=== PATIENT | male | born 1930 | race Caucasian/White ===

== ENCOUNTER 2016-05-29 08:37 | Inpatient (IN) | payer OTHER, MEDICAID ==
--- NOTE | 2016-05-29 09:02 | EDPHY ---
H & P Time Seen by Provider: 05/29/16 08:37 HPI/ROS: Chief complaint: Fall History of present illness: This is an 86-year-old male brought to the emergency department by EMS from [facility] where he resides for an apparent fall. According to EMS patient was found on the floor in his room yesterday. He appeared to have fallen. Nursing staff evaluated him and was able to get him back into his bed. This morning he apparently started to complain of some hip pain. An x-ray was taken which showed a femoral neck fracture. EMS was contacted and he was transported here. On my evaluation patient states his hips hurt, he denies other complaints. Review of systems: Unable to obtain secondary to level of consciousness (Vega Duran) Social History: Lives at [facility] (Vega Duran) Physical Exam: General Appearance: Alert, nontoxic Eyes: PERRLA Respiratory: Lungs clear to auscultation bilaterally Cardiac: Regular rate and rhythm. Gastrointestinal: Soft, nondistended, nontender. Neurological: Alert. Good strength in the upper and lower extremities bilaterally. Skin: No lesions consistent with trauma Musculoskeletal: Head is normocephalic, atraumatic. Spine without apparent tenderness. Chest wall intact palpation. Discomfort moving his hips. He is able to move the rest the extremities well. (Vega Duran) Constitutional: Initial Vital Signs Temperature (C) 36.3 C 05/29/16 08:58 Heart Rate 125 H 05/29/16 08:58 Respiratory Rate 16 05/29/16 08:58 Blood Pressure 99/59 L 05/29/16 08:58 O2 Sat (%) 91 L 05/29/16 08:58 O2 Delivery Mode Nasal Cannula O2 (L/minute) 2 Allergies/Adverse Reactions: No Known Allergies Allergy (Unverified 05/29/16 08:46) Home Medications: Medication Instructions Recorded Acetaminophen [Tylenol 325mg (*)] 650 mg PO Q6HRS PRN 05/29/16 Bisacodyl [Dulcolax] 10 mg RC DAILY PRN 05/29/16 Furosemide [Lasix 40 MG (*)] 40 mg PO DAILY 05/29/16 Levothyroxine [Synthroid 50 mcg 50 mcg PO DAILY06 05/29/16 (*)] Lisinopril [Zestril 10 mg (*)] 10 mg PO DAILY 05/29/16 Magnesium Hydroxide [Milk of 30 ml PO DAILY PRN 05/29/16 Magnesia] Metoprolol Tartrate [Lopressor 50 50 mg PO BID 05/29/16 mg (*)] Mirtazapine [Remeron] 15 mg PO DAILY 05/29/16 Vici-3 Fatty Acids [Fish Oil 1000 1,000 mg PO BID 05/29/16 mg (*)] Simvastatin [Zocor] 20 mg PO DAILY 05/29/16 Warfarin Sodium [Coumadin 2.5MG 2.5 mg PO TUTHSA@2100 05/29/16 (*)] Warfarin Sodium [Coumadin 5MG (*)] 5 mg PO SUMOWEFR@21 05/29/16 Medical Decision Making - Diagnostics Imaging: CT scan of the head and cervical spine negative for acute injury Chest x-ray with cardiomegaly and pulmonary vascular redistribution and sequelae of prior CABG Bilateral hip x-ray shows a left femoral neck fracture (Vega Duran) ED Course/Re-evaluation: Patient will be admitted to the hospitalist service under the care of Dr. Helder Webb On-call orthopedics, Dr. Miguel Andrews will consult on this patient On-call Cardiology, Dr. Ayana Leroy will also consult on this patient Patient is seen in conjunction with my secondary supervising physician Dr. Dolores Saldivar. Patient presents to the emergency department with EMS after sustaining a fall at his snf. It is not clear as to the events surrounding this fall, whether it was mechanical or medical. X-ray confirms a femoral head fracture. EKG shows patient in atrial fibrillation. Blood studies concerning for an elevated troponin. Patient is intermittently tachycardic and hypotensive. Aspirin was withheld at the request of my attending physician. Patient is anticoagulated with Coumadin. Patient is given fluid boluses with improvement in blood pressure. At the request of Cardiology a diltiazem drip is started without bolus. Patient is admitted to the hospital. (Vega Duran) Differential Diagnosis: Included but not limited to mechanical fall resulting in trauma multiple etiologies as well as syncope be secondary to volume depletion, cardiac disturbances, infectious pathology (Vega Duran) Other Provider: I evaluated and participated in the management of the patient. I also evaluated the patient independently. My co-signature indicates that I have reviewed this chart and I agree with the findings and plan of care as documented. My personal H&P findings include: 86-year-old male presents to the emergency department with a left femoral neck fracture. Patient has severe dementia and according to the snf records has a history of atrial fibrillation. He is on warfarin. On arrival to the emergency department his blood pressure was in the 90 systolic and heart rate ranged from 110 to 120. Patient himself can not provide history no review of systems secondary to his significant dementia. He denies any pain. He is alert and conversant. He has very dry mucous membranes. Lungs are clear. Abdomen is soft, heart rate is irregular and tachycardic. He has pain with range of motion and palpation of the left hip. No peripheral edema. Blood pressure improved with initially with a small bolus of fluid. However, patient was noted to have blood pressures ranging anywhere from mid 80s to mid 90 systolic. Heart rate remained in the 110's region throughout his emergency department course. Laboratory evaluation is concerning for an elevated troponin at 0.041 as well as a BNP of 9900. Patient's course was discussed with Dr. Ayana Leroy. Decision was made to place the patient on a low-dose Cardizem drip in an effort to obtain rate control and to improve the patient's blood pressure. Patient's course was discussed with Dr. Helder Webb, admitting hospitalist. Course was also discussed with Dr. Carlin oakes on 0, orthopedic surgery. Patient was admitted to the hospital for further evaluation and eventual operative repair. (Dolores Saldivar) - Data Points Laboratory Results: Laboratory Results 05/29/16 09:21 05/29/16 09:21 05/29/16 05/29/16 09:21 09:17 WBC 12.37 H 10^3/uL (3.80-9.50) RBC 5.02 10^6/uL (4.40-6.38) Hgb 13.7 g/dL (13.7-17.5) POC Hgb 13.9 L gm/dL (14.5-17.3) Hct 39.6 L % (40.0-51.0) POC Hct 41 L % (42.8-50.6) MCV 78.9 L fL (81.5-99.8) MCH 27.3 L pg (27.9-34.1) MCHC 34.6 g/dL (32.4-36.7) RDW 14.7 % (11.5-15.2) Plt Count 149 L 10^3/uL (150-400) MPV 10.1 fL (8.7-11.7) Neut % (Auto) 74.2 % (39.3-74.2) Lymph % (Auto) 20.5 % (15.0-45.0) Potter % (Auto) 3.1 L % (4.5-13.0) Eos % (Auto) 1.5 % (0.6-7.6) Baso % (Auto) 0.2 L % (0.3-1.7) Nucleat RBC Rel Count 0.0 % (0.0-0.2) Absolute Neuts (auto) 9.18 H 10^3/uL (1.70-6.50) Absolute Lymphs (auto) 2.54 10^3/uL (1.00-3.00) Absolute Monos (auto) 0.38 10^3/uL (0.30-0.80) Absolute Eos (auto) 0.18 10^3/uL (0.03-0.40) Absolute Basos (auto) 0.03 10^3/uL (0.02-0.10) Absolute Nucleated RBC 0.00 10^3/uL (0-0.01) Immature Gran % 0.5 % (0.0-1.1) Immature Gran # 0.06 10^3/uL (0.00-0.10) PT 32.5 H SEC (12.0-15.0) INR 3.11 H (0.83-1.16) APTT 54.8 H SEC (23.0-38.0) POC Sodium 140 mEq/L (134-144) Sodium 140 mEq/L (134-144) POC Potassium 4.2 mEq/L (3.3-5.0) Potassium 4.5 mEq/L (3.5-5.2) POC Chloride 101 mEq/L (96-108) Chloride 102 mEq/L (97-110) Carbon Dioxide 24 mEq/l (22-31) Anion Gap 14 mEq/L (8-16) POC BUN 30 H mg/dL (7-23) BUN 29 H mg/dL (7-23) Creatinine 1.5 H mg/dL (0.7-1.3) POC Creatinine 1.6 H mg/dL (0.8-1.5) Estimated GFR 44 Glucose 134 H mg/dL (70-100) POC Glucose 135 H mg/dL (70-100) Calcium 9.0 mg/dL (8.5-10.4) Creatine Kinase 139 IU/L (0-224) Troponin I 0.041 H ng/mL (0-0.034) NT-Pro-B Natriuret Pep 9900 H pg/mL (0-450) Medications Given: Discontinued Medications Diltiazem HCl 125 mg/ Dextrose 150 mls @ 0 mls/hr IV EDNOW ONE; As Directed PRN Reason: Protocol Stop: 05/29/16 10:27 Last Admin: 05/29/16 13:30 Dose: 150 mls Phytonadione (Vitamin K) 5 mg PO ONCE ONE Stop: 05/29/16 14:39 Last Admin: 05/29/16 15:38 Dose: 5 mg Point of Care Test Results: 05/29/16 09:17 POC Sodium 140 POC Potassium 4.2 POC Chloride 101 POC BUN 30 H POC Creatinine 1.6 H POC Glucose 135 H Departure - Departure Disposition: [facility] Inpatient Acute Clinical Impression: Femoral neck fracture Qualifiers: Qualifier Code: (S72.002A) Fracture of unspecified part of neck of left femur, initial encounter for closed fracture A-fib Qualifiers: Qualifier Code: (I48.91) Unspecified atrial fibrillation Hypotension Qualifiers: Qualifier Code: (I95.9) Hypotension, unspecified Condition: Serious
--- NOTE | 2016-05-29 09:24 | CPEKG ---
Heart Rate: 87 RR Interval: 690 QRSD Interval: 124 QT Interval: 376 QTC Interval: 453 QRS [place]: -20 T Wave [place]: 173 EKG Severity - ABNORMAL ECG - EKG Impression: ATRIAL FIBRILLATION EKG Impression: LEFT BUNDLE BRANCH BLOCK Electronically Signed By: Dolores Saldivar 29-May-2016 15:48:08
[2016-05-29 09:26] LABS: % IMMATURE GRANULYOCYTES 0.5 % (0.0-1.1); ABSOLUTE IMMATURE GRANULOCYTES 0.06 10^3/uL (0.00-0.10); ADD DIFF? NO; ADD MORPH? NO; ADD SCAN? NO; ATYPICAL LYMPHOCYTE FLAG 10 (0-99); FRAGMENT RBC FLAG 0 (0-99); HEMATOCRIT 39.6 % (40.0-51.0); HEMOGLOBIN 13.7 g/dL (13.7-17.5); LEFT SHIFT FLG 0 (0-99); LIPEMIA HEMOLYSIS FLAG 90 (0-99); MEAN CELL HEMOGLOBIN 27.3 pg (27.9-34.1); MEAN CELL HEMOGLOBIN CONCENTR. 34.6 g/dL (32.4-36.7); MEAN CELL VOLUME 78.9 fL (81.5-99.8); MEAN PLATELET VOLUME 10.1 fL (8.7-11.7); PLATELET CLUMPS FLAG 0 (0-99); PLATELET COUNT 149 10^3/uL (150-400); RED BLOOD CELL COUNT 5.02 10^6/uL (4.40-6.38); RED CELL DISTRIBUTION WIDTH 14.7 % (11.5-15.2)
[2016-05-29 09:39] LABS: ANION GAP 14 mEq/L (8-16); CARBON DIOXIDE 24 mEq/l (22-31); CHLORIDE 102 mEq/L (97-110); CREATININE 1.5 mg/dL (0.7-1.3); GLOMERULAR FILTRATION RATE 44; GLUCOSE 134 mg/dL (70-100); POTASSIUM 4.5 mEq/L (3.5-5.2); SODIUM 140 mEq/L (134-144)
[2016-05-29 09:51] LABS: TROPONIN I 0.041 ng/mL (0-0.034)
--- NOTE | 2016-05-29 10:16 | CT ---
Unenhanced CT Scan of the Brain and Cervical Spine Clinical History: 86-year-old male status post trauma with a head injury. The patient also has some c ervicalgia. Technique: Standard unenhanced axial CT images were acquired from the skull base to the skull vertex, reformatted at 5.00 and 1.50 mm increments, and reviewed in bone, brain, and subdural windows. The D FOV is 25 cm. Subsequently, a multidetector unenhanced helical CT scan was obtained from the level of the clivus to the T2-T3 disk interspace, with images reformatted at 1.50 mm increments, and reviewed at a variety of window and level settings. The DFOV is 17.6 cm. Parasagittal and paracoronal constru cted images of the brain and cervical spine were also provided. A dose reduction protocol was used. Comparison Study: None. Findings: UNENHANCED CT SCAN OF THE HEAD: The ventricles and basilar cisterns are prominent with cortical sulc al widening, consistent with age-related cerebral atrophy. There is periventricular diminished attenu ation, consistent with chronic vascular ischemic gliosis. There are areas of focal lacunar infarction at the level of the left basal ganglia and the left batista radiata. There is no acute or subacute ab normal intra or extra-axial blood. The craniocervical junction, sella turcica, pineal gland, and orbi ts are unremarkable. There is some atherosclerotic calcification associated with the vertebral and ca vernous carotid arteries. The paranasal sinuses and mastoids are patent. There is no evidence of a sk ull fracture. Impression: Moderately advanced senescent features, with no acute intracranial abnormality. UNENHANCED CT SCAN OF THE CERVICAL SPINE: The bones are mildly demineralized. The vertebral body hei ghts and posterior alignments are maintained. There is a mild cervical levoscoliosis. There is no acu te fracture or facet malalignment. The craniocervical junction appears normal. There is some osseous hypertrophy along the anterior arch of C1 and there some mild narrowing of the predental space. The a tlantoaxial alignment is maintained, and the base and the tip of the dens are normal. There is a Schm orl's node seen along the inferior cortical endplate of C3. The prevertebral soft tissues are age rianna ropriate. There is no prevertebral hematoma or epidural hematoma. Median sternotomy wire is seen. The re is no focal alveolar consolidation or apical pneumothorax. A small calcified granuloma is seen in the anterior right upper lobe. The C1-C2 level demonstrates patency of the central canal. At the C2-C3 level, there is severe right and mild left facet hypertrophy. The central canal and neur al foramina remain patent. At the C3-C4 level, there is moderate degenerative disk space narrowing. Bilateral uncovertebral oste ophytes and moderate to severe bilateral facet hypertrophy result in [id number]-[id number] bilateral lizandro ral foraminal stenosis. The central canal remains patent. At the C4-C5 level, there is severe right and mild left facet hypertrophy. Uncovertebral osteophytes results in a mild degree of left neural foraminal stenosis. At the C5-C6 level, there is moderate degenerative disk space narrowing with moderate bilateral facet hypertrophy and uncovertebral osteophytes, resulting in severe bilateral neural foraminal stenosis. The central canal remains patent. The C6-C7 and C7-T1 levels demonstrate no central canal or neural foraminal stenosis. Impression: Multilevel degenerative changes as-detailed, with no acute cervical osseous abnormality. If there is further clinical concern regarding the patient's brain or cervical spine, MR imaging coul d be considered. Results were called to Vega Duran PA-C.
--- NOTE | 2016-05-29 10:23 | DX ---
Portable Bilateral Hips, 4 Views Total, 8:58 a.m. Indication: Status post fall. Technique: AP supine views of the pelvis, frog lateral view of the right hip, and crosstable lateral view of the left hip. Comparison Study: None available. Findings: There is an acute left femoral neck fracture with varus angulation. The left femoral head s till remains seated within the acetabulum. The patient has had a prior right hip arthroplasty, which is anatomically aligned. The femoral intramedullary sukhwinder is well-centered. A vascular stent is seen ov er the medial right mid-thigh, and at the level of the distal abdominal aorta to the aortoiliac bifur cation. The bones are demineralized. The ischial pubic rami are intact. There is some degenerative ch anges of the lower lumbar spine. Impression: 1. Acute left femoral neck fracture with varus angulation. 2. Status post prior remote right hip arthroplasty with anatomic alignment.
[2016-05-29] MEDS ORDERED: DILTIAZEM 125 MG in D5W 125 ML IV ONE (10:26)
--- NOTE | 2016-05-29 10:30 | DX ---
Chest, AP Supine and Lateral Views, 3 Views Total - May 29, 2016, at 9:31 a.m. Clinical History: 86-year-old male status post fall with left femoral neck fracture. Comparison Study: None available. Findings: Telemetry monitoring lead lines are present. There patient has had prior CABG, and the hear t is mildly enlarged. There is mild tortuosity of the aorta. The pulmonary vasculature is redistribut ed. This could be secondary to recumbent positioning, or true pulmonary venous congestion. There is n o peripheral interstitial edema, focal alveolar consolidation, or pleural effusion or pneumothorax. T here are degenerative features of the spine. Impression: Cardiomegaly with pulmonary vascular redistribution, and sequela of prior CABG.
[2016-05-29 10:36] LABS: INR 3.11 (0.83-1.16); PROTIME(PATIENT) 32.5 SEC (12.0-15.0)
[2016-05-29 10:37] LABS: APTT 54.8 SEC (23.0-38.0)
[2016-05-29] MEDS ORDERED: ONDANSETRON 4 MG/2 ML VIAL IVP PRN (11:19)
[2016-05-29] MEDS ORDERED: ONDANSETRON DISINTEGRATING 4 MG TAB PO PRN (11:19)
[2016-05-29] MEDS ORDERED: MAGNESIUM HYDROXIDE 30 ML UDCUP PO PRN (11:52)
[2016-05-29] MEDS ORDERED: BISACODYL 10 MG SUPP PR PRN (11:52)
[2016-05-29] MEDS ORDERED: METOPROLOL TARTRATE 50 MG TAB PO SCH (12:00)
--- NOTE | 2016-05-29 12:40 | GHP ---
[f rep st] HISTORY AND PHYSICAL DATE OF ADMISSION: 05/29/2016 HISTORY OF PRESENT ILLNESS: The patient is an 86-year-old gentleman with history of coronary artery disease and dementia who had a mechanical fall yesterday at [facility], where he resides. He tells m e he was found on the floor of his room. They got him up and brought him back to bed and then this m orning, he was complaining of hip pain. He was unable to stand. They got an x-ray there which demon strated a femoral neck fracture. He was brought here. When I speak with the patient, he is alert an d oriented to being in the hospital and his name, but he is not sure at which hospital. He denies pa in but he does wince when his left leg is moved. He denies chest pain, shortness of breath. No feve r, chills, nausea, vomiting, diarrhea, although I am not sure how aware of these things he actually i s. REVIEW OF SYSTEMS: Complete 10-point review of systems conducted and negative except as noted in the HPI. PAST MEDICAL HISTORY: 1. Dementia. 2. Right hip fracture. 3. Coronary artery disease, status post CABG 8-10 years ago with anatomy unknown. 4. History of AAA repair with a bifurcated aortic graft. 5. Atrial fibrillation. 6. Hyperlipidemia. 7. Hypothyroidism. ALLERGIES: No known drug allergies. MEDICATIONS: Warfarin, Lasix, levothyroxine, lisinopril, Remeron, simvastatin, fish oil, metoprolol 75 b.i.d., p.r.n. Ativan for agitation. SOCIAL HISTORY: At this point in time, it does not appear that he drinks alcohol or smokes cigarette s. He was at [facility]. He has dementia, He is a Do Not Resuscitate. FAMILY HISTORY: Parents are . PHYSICAL EXAM: VITALS: Temp 36.3, blood pressure 99/59, pulse 125, breathing 16 times a minute, 91% on room air. GENERAL: No acute distress, alert but not oriented. HEENT: Sclerae anicteric. Orop harynx clear. Mucous membranes are moist. NECK: Supple. No lymphadenopathy or JVD. LUNGS: Clear to auscultation anterolaterally. HEART: S1, S2. Irregularly irregular and tachycardic without sig nificant murmur. ABDOMEN: Soft, nontender, nondistended. EXTREMITIES: His left lower extremity is externally rotated and shortened. There is trace edema bilaterally. Calves are nontender. SKIN: Without rash. NEUROLOGIC: Nonfocal. LABS: Sodium 140, potassium 4.5, chloride 102, bicarb 24, BUN 29, creatinine 1.5, glucose 134. Trop onin 0.041, rapid repeat about an hour and 40 minutes later showed 0.026. His BNP is elevated at 990 0. There are no priors for comparison. His INR is 3.11. White count 12.37, hematocrit 39.6, platel ets are 149,000. Chest x-ray, interpreted by me, shows sequelae of prior CABG without heart failure. No focal infiltr ate and no pneumothorax. Hip x-ray shows left femoral neck fracture and right hip arthroplasty. EKG interpreted by me, shows atrial fibrillation at 87 with left bundle branch block pattern. Head CT shows moderately advanced senescent features. No acute intracranial abnormality. Unenhanced CT scan of the cervical spine shows multilevel degenerative disease changes with no acute osseous abnormality. I have discussed the case with Dr. Ayana Leroy and Dr. Casa Saldivar. ASSESSMENT/PLAN: This is an 86-year-old gentleman with coronary artery disease, peripheral vascular disease, who presents with hip fracture, positive troponin, an elevated BNP, as well as rapid atrial fibrillation. 1. Hip fracture. This warrants operative management despite his multiple comorbidities and signific ant dementia. The patient does probably require an additional 24 hours of workup prior to visiting t operating room. a. He does not appear to have acute coronary syndrome. I suspect the elevated troponin is secondary to demand from rapid atrial fibrillation. b. Will attempt to find a prior EKG to evaluate his left bundle branch block pattern. c. Stat echo has been ordered. 2. He will be seen in consultation by Dr. Ayana Leroy. [place] timing for the operating room would be not before 05/30/2016. 3. Preoperative cardiac evaluation: The patient has known coronary disease with active cardiac cond ition of uncontrolled atrial fibrillation which I suspect is secondary to pain and/or dehydration. H e has been given gentle IV fluids and diltiazem drip has been started. I will continue his metoprolo l; it is possible that he missed his dose this morning. 4. Pulmonary embolism has been considered as a cause of this; however, given his INR of 3, I think t his is less likely. 5. Elevated INR. This should be reversed prior to surgery. I will hold on doing this today as we a wait further cardiac workup. 6. Coronary artery disease. The patient has a modestly elevated troponin that trended to normal. H is EKG with left bundle branch block is potentially concerning for an ischemic equivalent; however, I think given his down trending troponin, I suspect that some of it is chronic for him. Attempts to f ind a prior EKG are ongoing. 7. Dementia. Caution with sedating medications. No Benadryl. No Phenergan. Would used judicious pain medicines. 8. Pain. I have written him for scheduled Tylenol and p.r.n. low-dose hydromorphone. 9. Elevated creatinine. His baseline is unknown. He appears clinically a bit dry, he was given doug e IV fluids. Will repeat the value tomorrow. 10. Elevated BNP. This value is markedly elevated; however, without known prior obvious heart failu re, it is difficult to know what to make of it better. Echocardiogram is pending. 11. Prophylaxis. His INR is therapeutic. 12. Code: Do Not Resuscitate. 13. Disposition: Inpatient status. /[id number]/MODL
[2016-05-29] MEDS ORDERED: ACETAMINOPHEN 325 MG TAB PO SCH (14:00)
--- NOTE | 2016-05-29 14:26 | GCON ---
[f rep st] CONSULTATION DATE OF CONSULTATION: 05/29/2016 CHIEF COMPLAINT: Status post hip fracture, preoperative evaluation. HISTORY OF PRESENT ILLNESS: We were asked by Dr. Webb to visit with Mr. Renee. The patient has significant dementia, and history from the patient is limited. I did interview his daughter as well, who does not have all the details of his medical history. This is an 86-year-old male with a history of remote CABG in [place], [place]. His daughter thinks this was in the 80s. He has atrial fibrillation on chronic Coumadin therapy, hypertension, unspecifi ed heart failure, and what she thinks might be an abdominal aortic aneurysm. He was moved from [facility] to [facility] a few months ago and has not fully established cardiology or primar care here in [place] yet. Yesterday, he was found on the floor of his room by the staff at [facility]. They were able to get h im back to bed. However, this morning, he was complaining of left hip pain and an x-ray was performe d. This confirmed a left femoral neck fracture, and he was brought to the ER for further evaluation. In the department, he was found to be in atrial fibrillation with rapid ventricular response and bord vilma blood pressures. His hemodynamics improved with IV fluid resuscitation. He was admitted to [facility]. Upon my evaluation, he denies chest pain or dyspnea. He thinks that he fell off his horse and that i s how he broke his hip. He is having left hip pain. REVIEW OF SYSTEMS: Unable to perform a complete review of systems due to the patient's dementia. CODE STATUS: Do Not Resuscitate. PAST MEDICAL HISTORY: 1. Coronary disease, status post remote CABG. 2. Peripheral vascular disease with possible AAA. 3. Atrial fibrillation. 4. Hypertension. 5. Heart failure, unspecified. 6. Dementia. 7. Status post right hip fracture and repair in the past. 8. Hypothyroidism. OUTPATIENT MEDICATIONS: Tylenol, warfarin, Dulcolax, fish oil, Lasix 40 mg daily, metoprolol 50 mg t wice daily, milk of magnesia, Remeron, Synthroid 50 mcg daily, lisinopril 10 mg daily and simvastatin . SOCIAL HISTORY: The patient resides at [facility]. He does not smoke cigarettes. FAMILY HISTORY: Not applicable to the current case. PHYSICAL EXAM: VITAL SIGNS: Blood pressure 98/75, heart rate 109, oxygen saturation 95% on 2 L. He has afebrile. GENERAL: Elderly frail male in no acute distress. HEENT: Sclerae are clear and viki e of jaundice. Mucous membranes are dry. CARDIOVASCULAR: JVP is less than 10. Irregular, irregula r rhythm without murmur or rub. No S3. LUNGS: Clear anteriorly and laterally. ABDOMEN: Soft, non tender, nondistended without bruits, masses or hepatosplenomegaly. EXTREMITIES: Warm and well-perfu sed with trace bilateral ankle edema. No cyanosis or clubbing. NEURO: He is oriented to self, but does not recall the exact details of his hospital admission. LABORATORY DATA: White count 12.37 with a left shift. Hematocrit 39.6 and platelets 149. INR 3.1, sodium 140, potassium 4.5, chloride 102, bicarb 24, BUN 29, creatinine 1.5, unknown baseline. Glucos e 134, troponin 0.041. Repeat troponin 0.026. BNP 9900. Chest x-ray reviewed by me: Cardiomegaly and pulmonary vascular redistribution. Sequela of prior CA BG. Head CT shows no acute process. Advanced senescent features. Multilevel degenerative changes in the cervical spine. Hip x-ray: Acute left femoral neck fracture. EKG reviewed by me: Atrial fibrillation with left bundle branch block. We do not have a previous EK G. Echocardiogram reviewed by me: Overall, normal LV systolic function with moderate mitral regurgitati on. Abnormal septal motion consistent with conduction abnormality. Mild to moderate tricuspid regur gitation. Moderate to severe RV dilation with borderline reduced RV systolic function. Aortic valve sclerosis without stenosis. Severe biatrial dilation. ASSESSMENT AND PLAN: An 86-year-old male with known history of coronary disease, status post remote CABG, atrial fibrillation, hypertension, dementia. Admitted status post fall at his nursing facility , complicated by left femoral neck fracture. 1. Coronary disease/history of CABG: No ischemic wall motion abnormalities on echo. No complaints of angina. His EKG shows left bundle, I do not know the chronicity of this. His initial troponin wa s minimally elevated. Second troponin is normal. No indication for coronary angiogram or pharmacolo gic stress testing. Continue medical management with his outpatient beta blockers and statin. He is on warfarin, and the decision about aspirin can be made after his surgery. 2. Atrial fibrillation: Initially rapid ventricular response. Blood pressures were initially on th e low side. This is improved with IV fluids. I would restart his outpatient metoprolol at a slightl y lower dose. If this is ineffective, consider diltiazem drip. Coumadin can be held for the periope rative period. 3. Preoperative for hip repair: His INR is elevated, so likely his hip surgery we will have to be d elayed. He is a risk patient for a moderate risk procedure. We have recommended proceeding without further cardiac testing given the fact that he is ambulatory at his nursing facility and an unrepaire d hip would warrant him nonambulatory. This was discussed with the patient's daughter, Tammy, at the bedside. Reinitiate beta-blockers for cardio protection in the perioperative period. 4. Possible abdominal aortic aneurysm: His daughter is unsure of his history, but thinks he might h ave an abdominal aortic aneurysm. I do not appreciate this on exam. Obtain retroperitoneal ultrasou nd. Thank you for allowing us to participate in Mr. Freed's care. We will follow with you. /[id number]/MODL
--- NOTE | 2016-05-29 14:34 | SOAPPROG ---
SOAP Progress Note Assessment/Plan: Assessment: Plan: Subjective: Pain well controlled, c/o weakness and still difficulty mobilizing OOB. Objective: Vital Signs Temp Pulse Resp BP Pulse Ox 36.8 C 102 H 16 104/51 L 90 L 05/29/16 13:42 05/29/16 13:42 05/29/16 13:42 05/29/16 13:42 05/29/16 13:42 PT 32.5 SEC (12.0-15.0) H 05/29/16 09:21 INR 3.11 (0.83-1.16) H 05/29/16 09:21 ICD10 Worksheet Patient Problems: Problems Problem Status Diagnosed A-fib Acute Femoral neck fracture Acute Hypotension Acute
[2016-05-29] MEDS ORDERED: PHYTONADIONE 2.5 MG/2.5 ML ORAL UDL PO ONE (14:38)
--- NOTE | 2016-05-29 15:05 | ECHO ---
[id number] + + [address] : : [place] [address] : : [phone] + Adult Echocardiographic Report + ---+ :Name: QUINTON DOBSON Lorraine Date: 05/29/2016 12:21 PM : : Hospital Admission Number: [id number] Location: ER: :: 1930 Gender: Male Height: 64 in : :Age: 86 yrs Race: WH Weight: 170 lb : :Reason For Study: Increased troponin/fractured hip : : BSA: 1.8 meters2 : + ---+ MMode/2D Measurements & Calculations LVIDd: 4.9 cm EDV(Teich): 115.5 ml MV Diam: 2.9 cm Ao root diam: 3.7 cm LA dimension: 4.8 cm LVOT diam: 2.0 cmLVLd ap4: 6.5 cm SV(MOD-sp4): LVOT area: EDV(MOD-sp4): 27.0 ml 3.1 cm2 42.0 ml LVLs ap4: 6.7 cm ESV(MOD-sp4): 15.0 ml EF(MOD-sp4): 64.3 % Normal Measurement Values: + + :LVIDd (3.5-5.7cm) IVSd (0.6-1.1cm) LVPWd (0.6-1.1cm) Aortic Root (2.0-3.7cm)Left Atrium (1.5-4.0cm): :LV Vol(d) (76-115ml) LV Vol(s) (29-48ml) Ejec Fraction (50-65%)PV Nilson (0.6- 1.2m/s) TV Nilson (0.4-1.0m/s) : :MV E Nilson (0.8-1.0m/s)MV A Nilson (0.3-1.0m/s)LVOT Nilson (0.7-1.2m/s) Asc Ao Nilson ( 0.9-1.8m/s) : + + Doppler Measurements & Calculations MV V2 max: Ao V2 max: LV V1 max: MR max nilson: 92.2 cm/sec 127.5 cm/sec 67.7 cm/sec 404.0 cm/sec MV max P.4 mmHg Ao max PG: LV V1 max PG: MR max PG: MV V2 mean: 6.6 mmHg 1.8 mmHg 65.3 mmHg 53.0 cm/sec Ao mean PG: LV V1 mean PG: MV mean P.0 mmHg 1.0 mmHg 1.0 mmHg Ao V2 mean: LV V1 mean: MV V2 VTI: 12.1 cm 96.9 cm/sec 48.5 cm/sec MV area (1 diam): Ao V2 VTI: 22.0 cm LV V1 VTI: 13.4 cm 6.6 cm2 INOCENTE(I,D): 1.9 cm2 MVA(VTI): 3.5 cm2 INOCENTE(V,D): 1.7 cm2 MV Flow area (1diam): 6.6 cm2 MR(RF 1 diam): SV(MV 1 diam): TR max nilson: RF(MV,Ao)(1 diam): 20.6 % 79.9 ml 274.0 cm/sec -2.0 SI(MV 1 diam): TR max PG: RF(MV,LVOT) 43.8 ml/m2 30.0 mmHg (1diam): 0.47 SV(LVOT): 42.1 ml RAP systole: 10.0 mmHg RVSP(TR): 40.0 mmHg Left Ventricle The left ventricle is normal in size. There is normal left ventricular wall thickness. Left ventricular systolic function is normal. Ejection Fraction = 55-60%. Septal motion is consistent with conduction abnormality. Right Ventricle The right ventricle is moderately dilated. The right ventricular systolic function is borderline reduced. Atria The left atrium is moderately dilated. The right atrium is moderately dilated. The interatrial septum is intact with no evidence for an atrial septal defect. Mitral Valve The mitral valve is normal in structure and function. There is no evidence of mitral valve prolapse. There is no mitral valve stenosis. There is moderate mitral regurgitation. Tricuspid Valve Normal tricuspid valve. There is moderate to severe tricuspid regurgitation. Right ventricular systolic pressure is 40mmHg. Aortic Valve Fixed AV NCC. Moderate-Severe Aortic Valve Calcification. There is no aortic stenosis. There is no aortic insufficiency. Pulmonic Valve The pulmonic valve is normal in structure and function. There is no pulmonic valvular regurgitation. Great Vessels The aortic root is normal size. Pericardium/Pleural There is no pericardial effusion. Conclusion A complete two-dimensional transthoracic echocardiogram was performed (2D, M-mode, Doppler and color flow Doppler). Left ventricular systolic function is normal. Ejection Fraction = 55-60%. Abnormal septal motion consistent with conduction abnormality The right ventricle is moderately dilated with borderline reduced RV systolic function The left atrium is moderately dilated. The right atrium is moderately dilated. There is moderate mitral regurgitation. There is moderate to severe tricuspid regurgitation. Right ventricular systolic pressure is 40mmHg. Moderate-Severe Aortic Valve Calcification Fixed AV NCC. No No prior echo Final Reading Physician: Dr Ayana Leroy electronically signed on 05/29/2016 03:04 PM Ordering Physician: Helder Webb Performed By: Yun Garcia, MOHAN
--- NOTE | 2016-05-29 15:16 | GCON ---
[f rep st] CONSULTATION ORTHOPEDIC CONSULTATION DATE OF CONSULTATION: 05/29/2016 CHIEF COMPLAINT: Left hip injury. HISTORY OF PRESENT ILLNESS: An 86-year-old male with multiple medical problems and severe dementia who suffered a mechanical fall yesterday at [facility], [facility], where he resides full-time. The patient apparently fell, was brought back into bed and then found this morning to have significant left hip pain as well as inability to bear weight. As a result, the patient was brought to [facility] ER, and found to have a left hip fracture. I was consulted as the on-call orthopedic surgeon. The patient denies any significant pain except when his left lower extremity is moved and when he was being transferred from [facility] to bed. He is accompanied by his daughter, who is the patient's power-of -ip attorney. The patient was a limited ambulator prior to this fall. The daughter describes him "dragging the left leg around." PAST MEDICAL HISTORY: Dementia, CAD, status post CABG. History of AAA, atrial fibrillation, hyperlipidemia, hypothyroidism. PAST SURGICAL HISTORY: Right hip fracture treated with bipolar hemiarthroplasty in [place], [place] in early 2012. Surgery for abdominal aortic aneurysm, though date is unknown. CABG in the mid . ALLERGIES: No known drug allergies. MEDICATIONS: Wafarin, Lasix, levothyroxine, lisinopril, metoprolol, simvastatin , Remeron, Ativan p.r.n. for agitation, and fish oil. SOCIAL HISTORY: The patient resides full-time at [facility], which is a memory care/dementia type facility. Most of this information is obtained from his daughter, who accompanies the patient at bedside. The patient quit smoking in the mid . No alcohol or drug use. FAMILY HISTORY: Father with history diabetes and coronary artery disease. Sister with coronary artery disease, COPD, emphysema, and was a heavy smoker. Son at age 32 of severe diabetes complications. A different son with coronary artery disease. A third son with chronic kidney disease and diabetes. REVIEW OF SYSTEMS: A 10-point review is otherwise negative for any other complaints, concerns or history. PHYSICAL EXAMINATION: VITAL SIGNS: The patient is afebrile at 36.3, blood pressure 104/51, heart rate 115, respiratory rate is 20 with 94% on 3 L nasal cannula. GENERAL: NAD, cooperative, and pleasant. A and O x2. HEENT: NC/AT , EOMI, PERRLA. Ears and nares currently without discharge. Oropharynx clear. NECK: NTTP, FROM, supple. Negative Lhermitte's and Spurling's. No LAD. MUSCULOSKELETAL: The left hip is compared to the right. There is no ecchymosis or erythema, calor or edema, NTTP. Positive SLR attempt, positive log roll. ROM deferred. No tenderness distally throughout the femur, knee, and lower leg, foot, and ankle. Both calves nontender, non swollen. Negative Homans. DNVI BLEs. Remainder of secondary survey is negative for any other obvious signs of significant musculoskeletal injury. SKIN: Please see dictation above. There is no ecchymosis or erythema, calor or edema. No other rashes or lesions noted. No tattoos noted. NEUROLOGICAL: Nonfocal. No deficits noted. C5 to T1 and L2 through S1 grossly intact, although the patient 's examination is somewhat difficult due to his mental status. DTRs are grade 1 + bilateral upper, 2+ bilateral lower extremities in symmetry. No clonus. PSYCH: Alert and oriented x2. Generally, depressed mood and affect. He does seem to be easily agitated. RADIOGRAPHS: Plain films are consistent with a left femoral neck fracture (GIV ) with significant displacement. Femoral head is reduced within the acetabulum. IMPRESSION: Closed, displaced left femoral neck fracture. PLAN: The patient's diagnosis and treatment options have been outlined for him and his daughter today. At this point, given the patient's atrial fibrillation and pending cardiac consult, it appears, per the Medicine notes and information , that the patient will not be cleared for surgery until the earliest tomorrow. He will remain NWB LLE, bedrest, position of comfort, p.o. analgesics if needed. I recommend knee-hi TEDs and SCDs on both lower extremities. Currently , his INR is elevated above 3, and this will need to be titrated down to a normal level, however, given the pending cardiac consultation, the patient is still receiving his anticoagulant. I will follow this patient with you. Please call once there is a definitive plan as to when he would be appropriate for surgery. All of his questions have been answered today. All of his daughter's questions have been answered today. She is very happy with the care he has received. Thanks very much. /[id number]/MODL MTDD
[2016-05-29 15:51] LABS: COLOR YELLOW; LEUKOCYTE ESTERASE,URINE NEGATIVE (NEGATIVE); NITRITE,URINE NEGATIVE (NEGATIVE)
[2016-05-29 15:58] LABS: MUCUS TRACE /lpf (NONE-1+); RBC,URINE 15-25 /hpf (0-3)
--- NOTE | 2016-05-29 16:22 | US ---
Sonography Limited to the Abdominal Aorta Clinical History: 86-year-old male with a possible history of an abdominal aortic aneurysm. Technique: A curvilinear 5 MHz transducer was used to sonographically evaluate the abdominal aorta to the level of the aortoiliac bifurcation. The study was technically limited by the presence of overly ing bowel gas. The lead electrical engineer also indicated that the patient was pushing the transducer away throug hout the exam, further limiting evaluation. Comparison Study: Radiographs of the pelvis from early this morning. Findings: The proximal abdominal aorta has an AP diameter of 2.5 cm. The midabdominal aorta measures 3.5 x 2.7 cm, and the distal abdominal aorta measures 2.9 x 3.0 cm. There is an abdominal aortic sten t which extends to the proximal iliac arteries (on the conventional radiograph). Color and spectral D oppler analysis were not performed, and the common iliac arteries are not adequately evaluated sonogr aphically. If there is further clinical concern regarding the integrity of the stent, contrast-enhanc ed CT imaging could be considered. Impression: 1. Technically limited study because of bowel gas, and the patient's poor cooperation. 2. There is an abdominal aortic stent, which extends to the iliac bifurcation with some mild aneurysm al diameter measurements associated with the mid and distal aspects of the aorta. If there is further clinical concern regarding the patient's aorta, CT angiography could be considere d.
[2016-05-29] MEDS: METOPROLOL TARTRATE 25 MG TAB PO SCH (17:42)
[2016-05-29] MEDS: OMEGA-3 FATTY ACIDS 1,000 MG CAP PO SCH (22:06)
[2016-05-29] MEDS: HYDROmorphONE/DILAUDID 1 MG/ML SYR IVP PRN (23:43)
[2016-05-30 04:09] LABS: ANION GAP 13 mEq/L (8-16); CALCIUM 8.6 mg/dL (8.5-10.4); CARBON DIOXIDE 25 mEq/l (22-31); CHLORIDE 105 mEq/L (97-110); CREATININE 1.5 mg/dL (0.7-1.3); GLOMERULAR FILTRATION RATE 44; GLUCOSE 122 mg/dL (70-100); INR 2.03 (0.83-1.16); POTASSIUM 4.5 mEq/L (3.5-5.2); PROTIME(PATIENT) 23.1 SEC (12.0-15.0); SODIUM 143 mEq/L (134-144)
[2016-05-30] MEDS: METOPROLOL TARTRATE 25 MG TAB PO SCH (06:06)
[2016-05-30] MEDS: LEVOTHYROXINE 50 MCG TAB PO SCH (06:08)
[2016-05-30] MEDS ORDERED: PHYTONADIONE 1 MG in NS 50 ML IV ONE (06:46)
--- NOTE | 2016-05-30 08:41 | PDCARPN ---
Cardiology Progress Note Assessment/Plan: Assessment/plan: 86 yo M with CAD s/p remote CABG; AF, dementia admitted 05/29 s/ p left hip fracture after fall at nursing facility. Has had rapid AF, improved with oral metoprolol. 1. CAD with hx CABG: single troponin borderline elevated, repeat troponins normal. Denies CP. LBBB on ECG, unknown chronicity. Normal LVEF without ischemic wall motion abnormalities. On statin, BB. Hold ASA given elevated INR. Would restart as soon as feasible from a surgical standpoint post op. 2. AF: periods of RVR. Increase oral metoprolol. Home dose is 50 BID. Coumadin on hold for surgery. 3. Pre-op: he is a moderate risk patient for moderate risk surgery. He requires surgery to maintain his functional status. Discussed his cardiac risk with his daughter yesterday. 4. Hx of AAA treated with endovascular stent: limited visualization on abd u/s yesterday. No abd pain 5. Dementia: resides at [facility]. 6. Elevated creatinine at 1.5: stable from yesterday. Give IVF now while NPO. 05/30/16 08:42 05/30/16 08:53 Subjective: Don denies hip pain, CP, or SOB Objective: Vital Signs (8 Hrs) Temp Pulse Resp BP Pulse Ox 05/30/16 08:00 37.3 C 108 H 22 H 96/57 L 98 05/30/16 06:06 131 H 129/71 H 05/30/16 06:00 125 H 22 H 129/71 H 99 05/30/16 04:00 113 H 22 H 114/57 L 97 05/30/16 02:00 109 H 22 H 105/75 100 Intake/Output (24 Hrs) 05/29/16 05/30/16 05/31/16 05:59 05:59 05:59 Intake Total 382 Output Total 600 Balance -218 Intake: Oral (ml) 350 IV Intake (ml) 0 IV Infused (ml) 32 Diltiazem 125 mg In D5w 32 125 ml @ As Directed IV EDNOW ONE Rx#:[id number] Output: Urine (ml) 600 Catheter 600 Other: Weight 77 kg Sleepy but arousable JVP 10 Irreg tachy Lungs clear anteriorly and laterally No LE edema Result Diagrams: 05/29/16 09:21 05/30/16 03:37 Cardiac Labs: Cardiac Lab Results (72 Hrs) 05/29/16 05/29/16 15:29 11:00 Troponin I 0.024 0.026 Telemetry: AF with periods of RVR ICD10 Worksheet Patient Problems: Problems Problem Status Diagnosed A-fib Acute Femoral neck fracture Acute Hypotension Acute
[2016-05-30] MEDS ORDERED: METOPROLOL TARTRATE 25 MG TAB PO ONE (08:53)
[2016-05-30] MEDS ORDERED: METOPROLOL TARTRATE 50 MG TAB PO SCH (09:00)
[2016-05-30] MEDS ORDERED: NON-FORMULARY NEW DRUG (Mirtazapine [Remeron] 15 MG) PO SCH (09:00)
[2016-05-30] MEDS ORDERED: NON-FORMULARY NEW DRUG (Simvastatin [Zocor] 20 MG) PO SCH (09:00)
--- NOTE | 2016-05-30 09:00 | HOSPPROG ---
Hospitalist Progress Note Assessment/Plan: 86 yo M w CAD, AF, dementia here w fall, hip fracture elevated INR: received more vit K and ffp this AM repeat INR at 9:30 goal<1.5, suspect it will be there AF: rapid suspect clinically dry so will give IVF give add'l BB this AM (home dose of lopressor is 50 bid) goal 100 CAD: known CAD w remote cabg trop weakly + on admit and has normalized. more c/w demand from AF as opposed to ACS agree w dr leroy that no further workup or intervention necessary prior to OR start asa postop pain: scheduled tylenol and prn dilaudid not complaining of pain dementia: uncertain baseline not agitated caution w sedating and anticholinergic meds proph: lmwh postop code: DNR dispo: inpt Subjective: AF overnight (tele interp by me). case d/w Dr. Leroy Objective: Vital Signs Temp Pulse Resp BP Pulse Ox 37.3 C 108 H 22 H 96/57 L 98 05/30/16 08:00 05/30/16 08:00 05/30/16 08:00 05/30/16 08:00 05/30/16 08:00 Laboratory Results 05/30/16 03:37 05/29/16 05/30/16 05/31/16 05:59 05:59 05:59 Intake Total 382 Output Total 600 Balance -218 PT 23.1 SEC (12.0-15.0) H D 05/30/16 03:37 INR 2.03 (0.83-1.16) H 05/30/16 03:37 - Physical Exam Constitutional: no apparent distress, appears nourished Eyes: PERRL, anicteric sclera Ears, Nose, Mouth, Throat: hearing normal, No moist mucous membranes Cardiovascular: irregularly irregular, tachycardia, No systolic murmur Respiratory: no respiratory distress, no rales or rhonchi Gastrointestinal: normoactive bowel sounds, soft, non-tender abdomen Genitourinary: christopher in urethra, other (dark urine) Skin: warm, normal color Musculoskeletal: other (LLE externally rotated, pain w movement) Neurologic: sensation intact bilaterally, No AAOx3 Psychiatric: interacting appropriately Lymph, Heme, Immunologic: no cervical LAD ICD10 Worksheet Patient Problems: Problems Problem Status Diagnosed A-fib Acute Femoral neck fracture Acute Hypotension Acute
[2016-05-30] MEDS: LISINOPRIL 10 MG TAB PO SCH (09:29)
[2016-05-30] MEDS: MIRTAZAPINE 15 MG TAB PO SCH (09:29)
[2016-05-30] MEDS: OMEGA-3 FATTY ACIDS 1,000 MG CAP PO SCH ×2 (09:29→20:37)
[2016-05-30] MEDS: ATORVASTATIN CALCIUM 10 MG TAB PO SCH (09:29)
[2016-05-30 09:47] LABS: HEMATOCRIT 33.6 % (40.0-51.0)
[2016-05-30 09:53] LABS: INR 1.88 (0.83-1.16); PROTIME(PATIENT) 21.7 SEC (12.0-15.0)
[2016-05-30] MEDS ORDERED: ALTEPLASE 2 MG VIAL IVP PRN (11:07)
[2016-05-30] MEDS ORDERED: BUPIVACAINE/EPI 0.25% 30 ML SDV ONE (11:17)
--- NOTE | 2016-05-30 12:09 | GCON ---
[f rep st] CONSULTATION CRITICAL CARE CONSULTATION DATE OF CONSULTATION: 05/30/2016 REFERRING PHYSICIAN: Helder Webb MD CHIEF COMPLAINT: Hip fracture from a fall. HISTORY OF PRESENT ILLNESS: This 86-year-old male lives is a [place] [facility] and has a history of atria l fibrillation, on chronic Coumadin. He also had a coronary artery bypass graft in [place] years ago . The patient was found on the floor at the [place] [facility] and then this morning, he was complaining o f left hip pain. A hip x-ray confirmed a left femoral neck fracture. His pain is well controlled at this point and he has been seen by Orthopedic Surgery and is scheduled for surgery. He has dementia but when I ask him, he denies any shortness of breath or chest pain. I am not sure how accurate inocencio t is. PAST MEDICAL HISTORY: 1. Coronary artery disease, post coronary artery bypass graft. 2. Peripheral vascular disease. 3. Possible abdominal aortic aneurysm per family. 4. Atrial fibrillation with a rapid ventricular response. 5. Hypertension. 6. Dementia. 7. Corrected hypothyroidism. SOCIAL HISTORY: The patient does not smoke, drink alcohol or use illicit drugs. ALLERGIES TO MEDICATIONS: None. FAMILY HISTORY: Without diabetes mellitus or early arteriosclerotic vascular disease. REVIEW OF SYSTEMS: Review of systems x10 points is otherwise noncontributory except as included abov e. PHYSICAL EXAMINATION: VITAL SIGNS: The blood pressure is 95/61 with a pulse 106, respiratory rate o f 15, oxygen saturation 91% on room air. SKIN: Normal head without external evidence of trauma. EY ES: Fundi not visualized. EARS: Canals clear. NOSE: Without septal deviation or polyps. MOUTH A ND PHARYNX: Clear without lesions. NECK: Supple without adenopathy. No jugular venous distention. CHEST: Clear to auscultation and percussion. HEART: PMI 6th intercostal space, 12 cm left to mid sternal line. S1, S2 are normal. There is no S3, S4, or murmur. ABDOMEN: Soft, without organomega ly or masses. No bruits are heard. EXTREMITIES: Full range of motion, without clubbing, cyanosis, or peripheral edema. The left leg was not checked. DATA BASE: BUN is 27 with a creatinine 1.5. We do not have other renal function tests here to know whether this is acute or chronic. IMPRESSION: 1. Fracture left hip. 2. Acute versus chronic kidney disease. 3. Atrial fibrillation with a rapid ventricular response. 4. Peripheral vascular disease. 5. Possible abdominal aortic aneurysm. 6. Dementia. PLAN: The patient is on intravenous fluids and is going to have his hip fixed. PICC line will be pl aced to help monitor CVP and sdet his fluid status, particularly in light of the elevated creatinine . PUD prophylaxis with famotidine will be added, and will talk to the surgeons on when we can start heparin for DVT prophylaxis. /[id number]/MODL
[2016-05-30] MEDS ORDERED: ETOMIDATE 20 MG/10 ML VIAL ONE (12:27)
[2016-05-30] MEDS ORDERED: fentaNYL 100 MCG/2 ML INJ ONE ×3 (12:27→14:26)
[2016-05-30] MEDS ORDERED: ROCURONIUM 50 MG/5 ML VIAL ONE (13:44)
[2016-05-30] MEDS ORDERED: ONDANSETRON 4 MG/2 ML VIAL ONE (13:44)
[2016-05-30] MEDS ORDERED: METOPROLOL TARTRATE 5 MG/5 ML INJ ONE (13:44)
[2016-05-30] MEDS ORDERED: SUGAMMADEX SODIUM 200 MG/2 ML VIAL IVP ONE (13:44)
--- NOTE | 2016-05-30 14:37 | POSTOPPROG ---
Post Op Note Date of Operation: 05/30/16 Surgeon: Helder Andrews [employer] Software Developer: Kalin Campos SA Anesthesiologist: Juana Peña MD Anesthesia: GET(General Endotracheal) Pre-op Diagnosis: L fem neck fx Post-op Diagnosis: same Procedure: L hip bipolar clint Findings: comminuted basicervical fem neck fx Inf/Abcess present in the surg proc area at time of surgery?: No EBL: 100-500 (200cc) Drains: Hemovac Specimen(s): None
[2016-05-30] MEDS ORDERED: MIDAZOLAM 2 MG/2 ML VIAL ONE (15:40)
[2016-05-30] MEDS ORDERED: MIDAZOLAM 2 MG/2 ML VIAL IVP ONE ×2 (15:49→16:00)
--- NOTE | 2016-05-30 16:19 | GOP ---
[f rep st] OPERATIVE REPORT DATE OF OPERATION: 05/30/2016 SURGEON: Helder Andrews MD COSMETIC SALES ADVISOR: Abdiaziz Campos SA ANESTHESIA: General with Dr. Peña. PREOPERATIVE DIAGNOSIS: Left hip femoral neck fracture, displaced. POSTOPERATIVE DIAGNOSIS: Left hip femoral neck fracture, displaced. PROCEDURE PERFORMED: Left hip bipolar hemiarthroplasty. FINDINGS: Comminuted left basicervical femoral neck fracture with completed displacement, i.e., 100% . Femoral head was without any significant signs of osteoarthritis. No mass defects or other abnorm alities. Bone quality was poor for the patient's age and sex. ESTIMATED BLOOD LOSS: 200 cc. INDICATIONS: 86-year-old male who suffered a fall on May 28, 2016. Apparently, the patient ret urned to his bed at his living center and not recognized to have a fracture or significant injury unt wv the next day, May 29, 2016. At that time, the patient was brought into [facility] and found to have t he above-listed injury. He was admitted to the medicine consult service due to significant cardiac h istory and pathology, and I was consulted as the on-call orthopedic surgeon. His daughter is the [facility] power of shovel logger, and after she understood the risks, benefits, and alternatives to operative v ersus nonoperative care, she provided a signed and witnessed informed consent for the above-listed garvin rgery. All questions were answered prior to surgery. Please see the history and physical for additi onal information. DESCRIPTION OF PROCEDURE: The patient was identified in the preoperative holding area, and his left hip was signed and designated as the operative site. Patient was confirmed to be in right lower extr emity SCDs. He was treated with 2 g IV prophylactic cefazolin per protocol and then taken back to e operating room, placed supine on the OR table, and general anesthesia was obtained. Once adequate sedation, and the tube was stable, the patient was transferred to the OR table and then turned to the lateral decubitus position with an axillary roll underneath the right upper extremity. Right upper extremity placed on a well-padded arm board, and then left upper extremity was placed across bone foa m to appropriately position and pad the left upper extremity. The pelvis was then stabilized with st andard padded hip telecine operator. The down leg was padded around the proximal fibula and heel and ankle with additional foam egg crate padding over a well-padded OR table. Left lower extremity was then prepped and draped in the usual sterile manner. A standard posterolateral approach to the left hip was utilized for the surgery. A 12 cm curvilinear incision was placed directly over the greater trochanter in a curvilinear manner. Full-thickness de rmal incision was made with a #15 blade, and then careful dissection was taken down through the subcu taneous fat. A Decker was then used to sweep the fat anteriorly and posteriorly over the IT band for e ase of closure after surgery. The IT band was then split parallel with its fibers down along the lat eral aspect of the femur and then, in a curvilinear manner, posteriorly over the gluteus leroy. Th e gluteus leroy muscle fibers were then carefully divided with a Bovie cautery device with meticulo us hemostasis maintained throughout. The Charnley retractor was placed just deep to the IT band ante riorly and posteriorly. With internal rotation of the lower extremity, the posterior aspect of the g reater tuberosity and proximal femur were then carefully dissected free of soft tissues and bursa, an d in a subperiosteal manner, dissection was taken down to the posterior base of the femoral neck. Th e posterior small crossing vessels were coagulated. The piriformis tendon was tagged and then divide d at its insertion site on the femur. Retraction on the piriformis as well as dissection along the n paloma was then utilized in order to expose the fracture, and hematoma was irrigated and suctioned. Fur ther dissection was taken down along the posteromedial femur to the level of the lesser tuberosity. The capsule was then debrided of bony fragments, and a small ifdlal-afjnz-rhcr capsulotomy was then p erformed posterolaterally in order to open the capsule and ease extraction of the femoral head. Stay sutures were placed within the capsule posteriorly x3 with #1 Ethibonds. These were used to pull th e capsule posteriorly. The femoral head was identified. A threaded awl was then used to thread into the femoral head and then extract the head. The ligamentum teres was intact, so this was cut with a curved Burnette. The head was then inspected and found to be without any defects. There was only very minor arthritic change. The head was sized and found to be a 54 mm diameter head. With a femoral elevator placed as well as blunt Hohmanns both proximally and distally, the proximal f emur was then prepared. The pulsatile lavage system was used to pulse out the hip joint as well as t he femur, as there was significant hematoma in this region. A box osteotome was used to enter the la teral aspect of the femoral canal. Next, a canal finder was utilized, followed by sequential hand re aming up to a size 6. Next, standard broaching was performed up to a size 4, as this was found to dumont ve an appropriate fit for this cemented hemiarthroplasty. Next, the femoral canal was copiously irri gated with pulsatile lavage. The stem was measured, and a cement restrictor was placed down within t he femoral canal. Trials were performed with the broach in place and a +1.5 neck with 28 x 54 bipola r head was found to be of the appropriate reconstruction to establish appropriate length and offset a s well as excellent stability on standard stability testing. Rectus test was negative, and overall l imb length appeared appropriate. All of the trial component was removed, and the femoral canal was then again cleansed and packed with an epinephrine-soaked gauze. On the back table, the cement was readied. Using a standard third gen eration technique, the cement was placed into the femoral canal. The formal stem was then placed wit hin the femoral canal and cemented in approximately 20 degrees of anteversion, as all of the broachin g was performed. The cement was allowed to harden. All excess cement was removed from the hip. Onc e the cement was hardened, the bipolar components were mounted into place on a prepared and cleansed Swenson taper of the femoral stem. Excellent engagement was achieved and confirmed with pena tugging on the bipolar component after mounting it in place with standard head pusher. Once this was complet ed, a drain was placed around the neck, and the hip was reduced for final reduction, and again, all t esting, including rectus test and stability testing, was confirmed with excellent stability achieved. The wound was then copiously irrigated with sterile saline, and closure was begun. The IT band was closed with multiple interrupted Ethibond sutures. The deep fat space was closed wit h multiple interrupted 0 Vicryl sutures. The deep dermal layer was closed with 2-0 Vicryl sutures. Please note that prior to closing the fat space, the drain was advanced and cut to the appropriate le luann. The drain was exiting anterior to the incision with a standard stab incision via the trochar. Skin was closed with lynette. Sterile postoperative surgical dressings were applied. The drain was attached. Abduction pillow was applied. SCD was applied to the right lower extremity, and the ane hesia service took over to wake the patient up. TOURNIQUET TIME: None. DRAINS: 1 Hemovac. IMPLANTS: DePuy J and J size 4 cemented [place] hip stem with 28 x 54 bipolar components (+1.5 mm nec k). COMPLICATIONS: None. DISPOSITION: The patient was extubated and transferred to the PACU in stable condition. /[id number]/MODL
--- NOTE | 2016-05-30 16:38 | IR ---
Ultrasound-Guided Peripherally Inserted Central Catheter History: Immediate postoperative left hip replacement. Tachycardia. Technique: Procedure was performed with the patient in the hospital bed. Following informed consent, the right arm was prepped and draped in sterile fashion. 1% Xylocaine was used for local anesthetic. All elements of maximal sterile barrier technique including cap, mask, sterile gown, sterile gloves , large sterile sheet, hand hygiene, and 2% chlorhexidine for cutaneous antisepsis, followed. Ultraso und transducer was placed in sterile sleeve and used for real-time imaging guidance to enter the basi lic vein. Sterile coupling gel was used. 0.018 measuring wire was passed centrally , and the inter nal jugular vein was assessed sonographically to exclude retrograde malposition . A skin pinky with scalpel blade was followed by removing the access needle. A 5.5 American peel-away sheath was followe d by a 5 American double-lumen central catheter, trimmed to 39 cm length. The length of catheter was estimated from external measurements. The hub of the catheter was fixed to the skin using 2 sutures o f 0 silk, and a sterile dressing was applied. The catheter irrigated easily. A portable chest radiograph was requested and will be reported separately. Findings: No sonographic evidence of malposition in the internal jugular vein. Impression: Ultrasound-guided 5 American double lumen peripherally inserted central catheter; radiogr aphic confirmation is pending. - - - - - - - - - - - - - - - - - - - - - - - - - - - - - - - - - - - - - - - - - - - (Cross-cutting measures: Current medications, including all known prescriptions, bacy-ijn-wkfcchl me dications, herbal medications, and nutritional supplements are listed in the medical record. The pat ient does not smoke. ) IR Call
--- NOTE | 2016-05-30 16:39 | DX ---
Portable Supine AP Chest May 30, 2016 1620 hours History: Assess new central catheter. Comparison: May 29, 2016. Findings: New peripherally inserted central catheter from the right arm terminates at the junction of superior vena cava and right atrium. Telemetry leads pass over the chest. The chest is rotated to th e right, and inspiratory depth is poor. Sternotomy wires and coronary bypass markers are present, as before. Impression: New peripherally inserted central catheter of the right arm is ready to use. IR Call
--- NOTE | 2016-05-30 16:40 | DX ---
Portable AP Left Hip, at 4:25 p.m. Clinical History: 86-year-old male with a recent left femoral neck fracture, undergoing a left hip ar throplasty. Comparison Study: Left hip, dated May 29, 2016. Findings: In the interim, the patient has undergone a left hip arthroplasty, with anatomic alignment of the femoral and the acetabular components. A surgical drain is in place. Skin lynette are seen per ipheral laterally. Impression: Anatomic alignment following a left hip arthroplasty.
[2016-05-30] MEDS ORDERED: ALBUMIN 5% 250 ML IV ONE (16:47)
[2016-05-30] MEDS: DILTIAZEM 125 MG in D5W 125 ML IV SCH (16:47)
[2016-05-30] MEDS: METOPROLOL TARTRATE 50 MG TAB PO SCH (20:36)
[2016-05-30] MEDS: FAMOTIDINE 20 MG/NACL 50 ML IV SCH (20:36)
[2016-05-30] MEDS: HYDROmorphONE/DILAUDID 1 MG/ML SYR IVP PRN (20:44)
[2016-05-31] MEDS: DILTIAZEM 125 MG in D5W 125 ML IV SCH ×2 (01:07→20:20)
[2016-05-31] MEDS: NS 1,000 ML IV SCH ×3 (01:07→14:35)
[2016-05-31] MEDS: LEVOTHYROXINE 50 MCG TAB PO SCH (04:59)
[2016-05-31 06:39] LABS: INR 1.89 (0.83-1.16); PROTIME(PATIENT) 21.8 SEC (12.0-15.0)
[2016-05-31 07:18] LABS: ANION GAP 11 mEq/L (8-16); CALCIUM 7.8 mg/dL (8.5-10.4); CARBON DIOXIDE 21 mEq/l (22-31); CHLORIDE 114 mEq/L (97-110); CREATININE 1.1 mg/dL (0.7-1.3); GLOMERULAR FILTRATION RATE > 60; GLUCOSE 135 mg/dL (70-100); POTASSIUM 3.8 mEq/L (3.5-5.2); SODIUM 146 mEq/L (134-144)
[2016-05-31] MEDS: LISINOPRIL 10 MG TAB PO SCH (08:08)
[2016-05-31] MEDS: OMEGA-3 FATTY ACIDS 1,000 MG CAP PO SCH ×3 (08:09→21:18)
[2016-05-31] MEDS: FAMOTIDINE 20 MG/NACL 50 ML IV SCH ×2 (08:11→20:27)
--- NOTE | 2016-05-31 09:11 | PDCARPN ---
Cardiology Progress Note Assessment/Plan: Assessment/plan: 86 yo M with CAD s/p remote CABG; AF, dementia admitted 05/29 s/ p left hip fracture after fall at nursing facility. 1. CAD with hx CABG: single troponin borderline elevated, repeat troponins normal. Denies CP. LBBB on ECG, unknown chronicity. Normal LVEF without ischemic wall motion abnormalities. On statin, BB. Would restart Aspirin as soon as feasible from a surgical standpoint post op. 2. AF: Coumadin has been held for surgery. Will discuss with Ortho when this can be restarted. Currently on diltiazem drip as he failed his swallow evaluation. Transition back to metoprolol 50 mg twice daily after he has been evaluated by speech therapy. 3. Postoperative status post hip repair: appears stable 4. Hx of AAA treated with endovascular stent: limited visualization on abd u/s on admission. No abd pain 5. Dementia: resides at [place]. 6. Elevated creatinine at 1.5: Today is 1.1. Improved after IV fluids. 05/31/16 09:09 05/31/16 09:11 Subjective: Atif does not complain of chest pain shortness of breath. He does not endorse hip pain. Objective: Vital Signs (8 Hrs) Temp Pulse Resp BP Pulse Ox 05/31/16 07:43 37.2 C 90 21 H 103/53 L 95 05/31/16 04:00 37.5 C 88 21 H 107/49 L 92 05/31/16 02:56 86 18 103/50 L 100 Intake/Output (24 Hrs) 05/30/16 05/31/16 06/01/16 05:59 05:59 05:59 Intake Total 382 5096.6 Output Total 600 1205 Balance -218 3891.6 Intake: Oral (ml) 350 IV Intake (ml) 0 50 IV Infused (ml) 32 4746.6 Diltiazem 125 mg In D5w 32 125 ml @ As Directed IV EDNOW ONE Rx#:[id number] Ns 1,000 ml @ 150 mls/hr 4336 IV CONT JENNIFER Rx#: [id number] Diltiazem 125 mg In D5w 160.6 125 ml @ Per Protocol IV CONT JENNIFER Rx#:[id number] Albumin 5% 250 ml @ As 250 Directed IV ONCE ONE Rx#: [id number] Fresh Frozen Plasma (ml) 300 Output: Urine (ml) 600 1010 Catheter 600 1010 Wound Drainage (ml) 105 Left Hip Hemovac 105 Wound Drainage (ml) 90 #1 Left Hemovac 90 Other: Weight 77 kg 82.282 kg sleeping but arousable. Told him JVP less than 10. Irregularly regular rhythm. 2/6 early systolic murmur at the left lower sternal border. No S3 new line lungs clear to auscultation anteriorly and laterally Extremities are warm and well perfused without cyanosis clubbing edema. Status post left hip fracture Result Diagrams: 05/30/16 09:33 05/31/16 06:44 Cardiac Labs: Cardiac Lab Results (72 Hrs) 05/29/16 05/29/16 15:29 11:00 Troponin I 0.024 0.026 Telemetry: Atrial fibrillation with controlled ventricular response ICD10 Worksheet Patient Problems: Problems Problem Status Diagnosed A-fib Acute Femoral neck fracture Acute Hypotension Acute
[2016-05-31 09:35] LABS: HEMATOCRIT 25.3 % (40.0-51.0); HEMOGLOBIN 8.3 g/dL (13.7-17.5)
--- NOTE | 2016-05-31 10:20 | HOSPPROG ---
Hospitalist Progress Note Assessment/Plan: 86 yo M w CAD, AF, dementia here w fall, hip fracture elevated INR: 1.9 this AM follow daily likely restart warfarin tomorrow aspiration: failed swallow eval yesterday so NPO repeat eval today AF: rapid euvolemic on dilt gtt given NPO CAD: known CAD w remote cabg trop weakly + on admit and has normalized. more c/w demand from AF as opposed to ACS agree w dr leroy that no further workup or intervention necessary prior to OR start asa postop pain: scheduled tylenol and prn dilaudid not complaining of pain dementia: uncertain baseline not agitated caution w sedating and anticholinergic meds stable proph: inr 1.9 code: DNR dispo: inpt Subjective: s/p hip fracture repair yesterday. case d/w Dr. Leroy. tele: AF ( interp by dc) Objective: Vital Signs Temp Pulse Resp BP Pulse Ox 37.2 C 90 21 H 103/53 L 95 05/31/16 07:43 05/31/16 07:43 05/31/16 07:43 05/31/16 07:43 05/31/16 07:43 Laboratory Results 05/31/16 09:25 05/31/16 06:44 05/30/16 05/31/16 06/01/16 05:59 05:59 05:59 Intake Total 382 5096.6 Output Total 600 1205 Balance -218 3891.6 PT 21.8 SEC (12.0-15.0) H 05/31/16 05:55 INR 1.89 (0.83-1.16) H 05/31/16 05:55 - Physical Exam Constitutional: no apparent distress, appears nourished Eyes: PERRL, anicteric sclera Ears, Nose, Mouth, Throat: moist mucous membranes, hearing normal, ears appear normal Cardiovascular: irregularly irregular, tachycardia, No systolic murmur Respiratory: no respiratory distress, no rales or rhonchi Gastrointestinal: normoactive bowel sounds, soft, non-tender abdomen Genitourinary: christopher in urethra Skin: warm, normal color Musculoskeletal: No full muscle strength, No no muscle tenderness Neurologic: No AAOx3 Psychiatric: other (alert, able to answer yes or no ?'s. not oriented to hospital. unchanged from admit), No interacting appropriately ICD10 Worksheet Patient Problems: Problems Problem Status Diagnosed A-fib Acute Femoral neck fracture Acute Hypotension Acute
[2016-05-31] MEDS: ATORVASTATIN CALCIUM 10 MG TAB PO SCH (11:38)
[2016-05-31] MEDS: METOPROLOL TARTRATE 50 MG TAB PO SCH ×2 (11:39→20:27)
[2016-05-31] MEDS: MIRTAZAPINE 15 MG TAB PO SCH (11:39)
--- NOTE | 2016-05-31 11:47 | SOAPPROG ---
SOAP Progress Note Assessment/Plan: Assessment: L femoral neck fracture, displaced s/p L hip bipolar hemiarthroplasty POD#1 - Continue hip precautions with abductor pillow - Continue PT/OT - Continue TEDs/SCDs for VTE prophylaxis - Continue pain management - Possible drain removal tomorrow - WBAT LLE Plan: 05/31/16 11:44 05/31/16 11:48 05/31/16 11:54 Subjective: Pt was seen and examined at 7:30am on 05/31/2016. Pt states he has some pain in his left hip, but no otherwise no complaints. Pt denies fever, chills, chest pain, SOB, N/V, calf pain, numbness and tingling. Objective: VSS, afebrile, pt is lying in bed sleeping, but responsive to questions and following commands. Abductor pillow in place, MACARIO/SCDs in place. 105mL blood in drain this morning. Vital Signs Temp Pulse Resp BP Pulse Ox 37.2 C 115 H 16 120/61 96 05/31/16 07:43 05/31/16 11:04 05/31/16 11:04 05/31/16 11:04 05/31/16 11:04 Laboratory Results 05/31/16 09:25 05/31/16 06:44 05/30/16 05/31/16 06/01/16 05:59 05:59 05:59 Intake Total 382 5096.6 Output Total 600 1205 Balance -218 3891.6 PT 21.8 SEC (12.0-15.0) H 05/31/16 05:55 INR 1.89 (0.83-1.16) H 05/31/16 05:55 Physical Exam - Physical Exam General Appearance: alert, no apparent distress Skin: normal color, warm/dry Extremities: normal inspection, normal capillary refill, other (dressing and drain intact), No pedal edema, No calf tenderness, No swelling, No Lee's sign Neuro/Psych: no motor/sensory deficits, alert, normal mood/affect ICD10 Worksheet Patient Problems: Problems Problem Status Diagnosed A-fib Acute Femoral neck fracture Acute Hypotension Acute
[2016-05-31] MEDS: HYDROmorphONE/DILAUDID 1 MG/ML SYR IVP PRN (21:13)
[2016-06-01] MEDS: NS 1,000 ML IV SCH ×2 (04:47→12:53)
[2016-06-01 05:07] LABS: % IMMATURE GRANULYOCYTES 0.3 % (0.0-1.1); ABSOLUTE IMMATURE GRANULOCYTES 0.02 10^3/uL (0.00-0.10); ADD DIFF? NO; ADD MORPH? NO; ADD SCAN? NO; ATYPICAL LYMPHOCYTE FLAG 30 (0-99); FRAGMENT RBC FLAG 0 (0-99); HEMATOCRIT 24.1 % (40.0-51.0); HEMOGLOBIN 7.8 g/dL (13.7-17.5); LEFT SHIFT FLG 0 (0-99); LIPEMIA HEMOLYSIS FLAG 80 (0-99); MEAN CELL HEMOGLOBIN 27.6 pg (27.9-34.1); MEAN CELL HEMOGLOBIN CONCENTR. 32.4 g/dL (32.4-36.7); MEAN CELL VOLUME 85.2 fL (81.5-99.8); MEAN PLATELET VOLUME 10.7 fL (8.7-11.7); PLATELET CLUMPS FLAG 10 (0-99); PLATELET COUNT 99 10^3/uL (150-400); RED BLOOD CELL COUNT 2.83 10^6/uL (4.40-6.38); RED CELL DISTRIBUTION WIDTH 14.9 % (11.5-15.2)
[2016-06-01 05:19] LABS: INR 1.56 (0.83-1.16); PROTIME(PATIENT) 18.7 SEC (12.0-15.0)
[2016-06-01 05:28] LABS: ANION GAP 12 mEq/L (8-16); CALCIUM 7.9 mg/dL (8.5-10.4); CARBON DIOXIDE 19 mEq/l (22-31); CHLORIDE 117 mEq/L (97-110); GLOMERULAR FILTRATION RATE > 60; GLUCOSE 125 mg/dL (70-100); POTASSIUM 3.7 mEq/L (3.5-5.2); SODIUM 148 mEq/L (134-144)
[2016-06-01] MEDS: LEVOTHYROXINE 50 MCG TAB PO SCH (06:40)
[2016-06-01] MEDS: ATORVASTATIN CALCIUM 10 MG TAB PO SCH (08:28)
[2016-06-01] MEDS: LISINOPRIL 10 MG TAB PO SCH (08:28)
[2016-06-01] MEDS: MIRTAZAPINE 15 MG TAB PO SCH (08:28)
[2016-06-01] MEDS: OMEGA-3 FATTY ACIDS 1,000 MG CAP PO SCH ×2 (08:29→19:32)
[2016-06-01] MEDS: METOPROLOL TARTRATE 50 MG TAB PO SCH ×2 (08:29→19:32)
[2016-06-01] MEDS: FAMOTIDINE 20 MG/NACL 50 ML IV SCH ×2 (08:29→19:33)
[2016-06-01] MEDS ORDERED: FUROSEMIDE 40 MG/4 ML VIAL IVP ONE (08:58)
--- NOTE | 2016-06-01 09:04 | PDCARPN ---
Cardiology Progress Note Assessment/Plan: Assessment/plan: 86 yo M with CAD s/p remote CABG; AF, dementia admitted 05/29 s/ p left hip fracture after fall at nursing facility. 1. CAD with hx CABG: single troponin borderline elevated, repeat troponins normal. Denies CP. LBBB on ECG, unknown chronicity. Normal LVEF without ischemic wall motion abnormalities. On statin, BB. Restart aspirin. 2. AF: Coumadin has been held for surgery. Rate controlled on oral metoprolol. Restart ASA. I do not think he is a candidate for ongoing coumadin given his dementia and fall risk. 3. Postoperative status post hip repair: appears stable. Start prophylactic dose lovenox. 4. Hx of AAA treated with endovascular stent: limited visualization on abd u/s on admission. No abd pain 5. Dementia: resides at [place]. 6. Elevated creatinine at 1.5 upon admission. Today is 1.0, improved after IV fluids. 7. Volume overload: single dose of lasix today. Discussed with Dr. Webb. 06/01/16 09:04 Subjective: Don denies CP or hip pain. He does report SOB Reviewed/Discussed With: hospitalist Objective: Vital Signs (8 Hrs) Temp Pulse Resp BP Pulse Ox 06/01/16 08:14 36.9 C 84 19 130/71 H 96 06/01/16 07:15 74 06/01/16 03:27 78 22 H 98/62 L 93 Intake/Output (24 Hrs) 05/31/16 06/01/16 06/02/16 05:59 05:59 05:59 Intake Total 5096.6 1600 Output Total 1205 750 Balance 3891.6 850 Intake: IV Intake (ml) 50 1600 IV Infused (ml) 4746.6 Ns 1,000 ml @ 150 mls/hr 4336 IV CONT JENNIFER Rx#: [id number] Diltiazem 125 mg In D5w 160.6 125 ml @ Per Protocol IV CONT JENNIFER Rx#:[id number] Albumin 5% 250 ml @ As 250 Directed IV ONCE ONE Rx#: [id number] Fresh Frozen Plasma (ml) 300 Output: Urine (ml) 1010 750 Catheter 1010 750 Wound Drainage (ml) 105 Left Hip Hemovac 105 Wound Drainage (ml) 90 #1 Left Hemovac 90 Other: Weight 82.282 kg NAD JVP 14. Irreg irreg. II/ holosystolic murmur LLSB Bibasilar rales No edema Result Diagrams: 06/01/16 05:00 06/01/16 05:00 Cardiac Labs: Cardiac Lab Results (72 Hrs) 05/29/16 05/29/16 15:29 11:00 Troponin I 0.024 0.026 Telemetry: AF with CVR ICD10 Worksheet Patient Problems: Problems Problem Status Diagnosed A-fib Acute Chronic Disease Mgmt/Transitional Care Acute Femoral neck fracture Acute Hypotension Acute
[2016-06-01] MEDS: ENOXAPARIN 40 MG/0.4 ML SYR SC SCH (09:51)
[2016-06-01] MEDS: ASPIRIN 81 MG CHEWABLE TAB PO SCH (09:51)
--- NOTE | 2016-06-01 10:10 | SOAPPROG ---
SOAP Progress Note Assessment/Plan: Assessment: L femoral neck fracture, displaced s/p L hip bipolar hemiarthroplasty POD#2 - Continue hip precautions with abductor pillow - Continue PT/OT - Continue TEDs/SCDs for VTE prophylaxis - Continue pain management - Possible drain removal tomorrow depending on next output - WBAT LLE - Dressing change today Plan: 05/31/16 11:44 05/31/16 11:48 05/31/16 11:54 06/01/16 10:09 06/01/16 10:13 Subjective: Pt denies any hip pain today, and has refused PT/OT. Pt denies fever, chills, SOB, chest pain, N/V, calf pain, numbness and tingling. Objective: VSS, afebrile, pt is lying in bed sleeping, but responsive to questions and following commands. Abductor pillow in place, MACARIO/SCDs in place. Vital Signs Temp Pulse Resp BP Pulse Ox 36.9 C 84 19 130/71 H 96 06/01/16 08:14 06/01/16 08:14 06/01/16 08:14 06/01/16 08:14 06/01/16 08:14 Laboratory Results 06/01/16 05:00 06/01/16 05:00 05/31/16 06/01/16 06/02/16 05:59 05:59 05:59 Intake Total 5096.6 1600 Output Total 1205 750 Balance 3891.6 850 PT 18.7 SEC (12.0-15.0) H 06/01/16 05:00 INR 1.56 (0.83-1.16) H 06/01/16 05:00 Physical Exam - Physical Exam General Appearance: alert, no apparent distress Skin: normal color, warm/dry, other (Incision site c/d/i; drain in place) Extremities: normal capillary refill, No pedal edema, No calf tenderness, No swelling, No Lee's sign Neuro/Psych: no motor/sensory deficits, alert, normal mood/affect ICD10 Worksheet Patient Problems: Problems Problem Status Diagnosed A-fib Acute Chronic Disease Mgmt/Transitional Care Acute Femoral neck fracture Acute Hypotension Acute
[2016-06-01] MEDS: HYDROmorphONE/DILAUDID 1 MG/ML SYR IVP PRN (11:40)
--- NOTE | 2016-06-01 13:11 | HOSPPROG ---
Hospitalist Progress Note Assessment/Plan: 86 yo M w CAD, AF, dementia here w fall, hip fracture elevated INR: now 1.6 indication for warfarin is AF given dementia and fall, risks>benefits, so will dc permanently on LMWH follow daily aspiration: passed swallow eval AF: rapid euvolemic now on po metoprolol wean/dc dilt CAD: known CAD w remote cabg trop weakly + on admit and has normalized. more c/w demand from AF as opposed to ACS agree w dr valiente that no further workup or intervention necessary prior to OR start asa postop pain: scheduled tylenol and prn dilaudid not complaining of pain dementia: uncertain baseline not agitated caution w sedating and anticholinergic meds stable proph: inr 1.9 code: DNR dispo: inpt Subjective: still on dilt gtt. tele: AF at < 100 (interp by me). case d/w dr valiente Objective: Vital Signs Temp Pulse Resp BP Pulse Ox 36.9 C 97 24 H 124/65 H 99 06/01/16 11:51 06/01/16 11:51 06/01/16 11:51 06/01/16 11:51 06/01/16 11:51 Laboratory Results 06/01/16 05:00 06/01/16 05:00 05/31/16 06/01/16 06/02/16 05:59 05:59 05:59 Intake Total 5096.6 1600 Output Total 2201 388 4007 Balance 3891.6 850 -1250 PT 18.7 SEC (12.0-15.0) H 06/01/16 05:00 INR 1.56 (0.83-1.16) H 06/01/16 05:00 - Physical Exam Constitutional: no apparent distress, appears nourished Eyes: PERRL, anicteric sclera Ears, Nose, Mouth, Throat: moist mucous membranes, hearing normal Cardiovascular: regular rate and rhythym, no murmur, rub, or gallop Respiratory: no respiratory distress, no rales or rhonchi Gastrointestinal: normoactive bowel sounds, soft, non-tender abdomen Genitourinary: No christopher in urethra Skin: warm, normal color Musculoskeletal: No full muscle strength Neurologic: No AAOx3 ICD10 Worksheet Patient Problems: Problems Problem Status Diagnosed A-fib Acute Chronic Disease Mgmt/Transitional Care Acute Femoral neck fracture Acute Hypotension Acute
[2016-06-01] MEDS ORDERED: DILTIAZEM 125 MG in D5W 125 ML IV SCH (19:30)
[2016-06-02] MEDS: LEVOTHYROXINE 50 MCG TAB PO SCH ×2 (06:24→10:04)
[2016-06-02] MEDS: FAMOTIDINE 20 MG/NACL 50 ML IV SCH (09:54)
[2016-06-02] MEDS: ASPIRIN 81 MG CHEWABLE TAB PO SCH (09:58)
[2016-06-02] MEDS: ATORVASTATIN CALCIUM 10 MG TAB PO SCH (09:58)
[2016-06-02] MEDS: MIRTAZAPINE 15 MG TAB PO SCH (09:58)
[2016-06-02] MEDS: LISINOPRIL 10 MG TAB PO SCH (09:58)
[2016-06-02] MEDS: OMEGA-3 FATTY ACIDS 1,000 MG CAP PO SCH ×2 (09:59→21:22)
[2016-06-02] MEDS: METOPROLOL TARTRATE 50 MG TAB PO SCH ×2 (09:59→18:48)
--- NOTE | 2016-06-02 10:15 | HOSPPROG ---
Hospitalist Progress Note Assessment/Plan: 86 yo M w CAD, AF, dementia here w fall, hip fracture elevated INR: warfarin dc'd permanently on [facility] proph aspiration: passed swallow eval AF: recurrent back on dilt gtt will likely increase bb transfuse blood loss anemia: likely 2/2 bleeding w hip fracture as opposed to ongoing bleeding hip soft minimal drainage in drain 1. transfuse 1 unit 2. repeat labs in AM thrombocytopenia: repeat labs tomorrow (06/03) continue lovenox for now CAD: known CAD w remote cabg trop weakly + on admit and has normalized. more c/w demand from AF as opposed to ACS agree w dr valiente that no further workup or intervention necessary prior to OR start asa postop pain: scheduled tylenol and prn dilaudid not complaining of pain dementia: uncertain baseline not agitated caution w sedating and anticholinergic meds stable proph: inr 1.9 code: DNR dispo: inpt Subjective: back in AF (tele interp by me). case d/w dr valiente. remains confused , alert, responsive Objective: Vital Signs Temp Pulse Resp BP Pulse Ox 37.6 C 103 H 22 H 128/70 H 94 06/02/16 08:00 06/02/16 08:00 06/02/16 08:00 06/02/16 08:00 06/02/16 08:00 Laboratory Results 06/01/16 05:00 06/01/16 05:00 06/01/16 06/02/16 06/03/16 05:59 05:59 05:59 Intake Total 1600 425 Output Total 750 1785 Balance 850 -1360 PT 18.7 SEC (12.0-15.0) H 06/01/16 05:00 INR 1.56 (0.83-1.16) H 06/01/16 05:00 - Physical Exam Constitutional: no apparent distress, appears nourished Eyes: PERRL, anicteric sclera Ears, Nose, Mouth, Throat: moist mucous membranes, hearing normal Cardiovascular: irregularly irregular, tachycardia, No systolic murmur Respiratory: no respiratory distress, no rales or rhonchi Gastrointestinal: normoactive bowel sounds, soft, non-tender abdomen Genitourinary: No christopher in urethra Skin: warm, normal color Musculoskeletal: full muscle strength, no muscle tenderness Neurologic: AAOx3 ICD10 Worksheet Patient Problems: Problems Problem Status Diagnosed A-fib Acute Chronic Disease Mgmt/Transitional Care Acute Femoral neck fracture Acute Hypotension Acute
[2016-06-02] MEDS: ENOXAPARIN 40 MG/0.4 ML SYR SC SCH (10:19)
--- NOTE | 2016-06-02 11:29 | PDCARPN ---
Cardiology Progress Note Assessment/Plan: Assessment/plan: 86 yo M with CAD s/p remote CABG; AF, dementia admitted 05/29 s/ p left hip fracture after fall at nursing facility. 1. CAD with hx CABG: single troponin borderline elevated, repeat troponins normal. Denies CP. LBBB on ECG, unknown chronicity. Normal LVEF without ischemic wall motion abnormalities. On statin, BB. Restart aspirin. 2. AF: Coumadin has been held for surgery. Rate controlled on oral metoprolol. Try to d/c dilt gtt. Restart ASA. I do not think he is a candidate for ongoing coumadin given his dementia and fall risk. 3. Postoperative status post hip repair: appears stable. Prophylactic dose lovenox. 4. Hx of AAA treated with endovascular stent: limited visualization on abd u/s on admission. No abd pain 5. Dementia: resides at [place] [facility]. 6. Elevated creatinine at 1.5 upon admission. Today is 1.0, improved after IV fluids. 7. Volume overload: single dose of lasix 06/01 8. Anemia: post op. Agree with single unit of PRBCs along with lasix IV. Discussed with Dr. Webb. 06/02/16 11:29 Subjective: Don reports "not doing well" but is not more specific than this Reviewed/Discussed With: hospitalist Objective: Vital Signs (8 Hrs) Temp Pulse Resp BP Pulse Ox 06/02/16 08:00 37.6 C 103 H 22 H 128/70 H 94 06/02/16 04:00 37.3 C 106 H 22 H 124/81 H 100 Intake/Output (24 Hrs) 06/01/16 06/02/16 06/03/16 05:59 05:59 05:59 Intake Total 1600 425 Output Total 750 1785 Balance 850 -1360 Intake: Oral (ml) 340 IV Intake (ml) 1600 IV Infused (ml) 85 Diltiazem 125 mg In D5w 85 125 ml @ Per Protocol IV CONT JENNIFER Rx#:[id number] Output: Urine (ml) 750 1650 Catheter 750 1650 Wound Drainage (ml) 135 Left Hip Hemovac 135 NAD, seems confused JVP <10 Irreg irreg. Soft early systolic murmur LLSB Lungs clear ant and laterally No edema Result Diagrams: 06/01/16 05:00 01/04/17 05:00 Telemetry: AF with mostly CVR ICD10 Worksheet Patient Problems: Problems Problem Status Diagnosed A-fib Acute Chronic Disease Mgmt/Transitional Care Acute Femoral neck fracture Acute Hypotension Acute
[2016-06-02] MEDS ORDERED: PSYLLIUM METAMUCIL 1 PKT PO ONE (12:18)
[2016-06-02] MEDS ORDERED: POLYETHYLENE GLYCOL 3350 17 GM PKT PO PRN (12:19)
[2016-06-02] MEDS ORDERED: LACTULOSE 20 GM/30 ML UDCUP PO PRN (12:19)
[2016-06-02] MEDS ORDERED: SENNOSIDES/DOCUSATE SODIUM TAB PO SCH (12:30)
--- NOTE | 2016-06-02 13:17 | SOAPPROG ---
SOAP Progress Note Assessment/Plan: Assessment/Plan: L femoral neck fracture, displaced s/p L hip bipolar hemiarthroplasty POD#3 - Continue hip precautions with abductor pillow - Continue PT/OT - Continue TEDs/SCDs for VTE prophylaxis - Continue pain management - Possible drain removal tomorrow depending on next output - WBAT LLE - Dressing change today 05/31/16 11:44 05/31/16 11:48 05/31/16 11:54 06/01/16 10:09 06/01/16 10:13 06/02/16 13:16 06/02/16 13:20 Subjective: Pt denies any hip pain today, and continues to refuse PT/OT. Pt is to receive 1 unit PRBCs. Pt denies fever, chills, SOB, chest pain, N/V, calf pain, numbness and tingling. Objective: VSS, afebrile, pt is lying in bed sleeping, but responsive to questions and following commands. Abductor pillow in place, MACARIO/SCDs in place. Drain output 135mL Vital Signs Temp Pulse Resp BP Pulse Ox 37.1 C 103 H 26 H 105/53 L 96 06/02/16 11:48 06/02/16 11:48 06/02/16 11:48 06/02/16 11:48 06/02/16 11:48 Laboratory Results 06/02/16 11:05 06/01/16 05:00 06/01/16 06/02/16 06/03/16 05:59 05:59 05:59 Intake Total 1600 425 Output Total 750 1785 Balance 850 -1360 PT 18.7 SEC (12.0-15.0) H 06/01/16 05:00 INR 1.56 (0.83-1.16) H 06/01/16 05:00 Physical Exam - Physical Exam General Appearance: alert, no apparent distress Skin: normal color, warm/dry, other (Incision site c/d/i, drain intact) Extremities: normal inspection, normal capillary refill, No pedal edema, No calf tenderness, No swelling, No Lee's sign Neuro/Psych: no motor/sensory deficits, alert, normal mood/affect ICD10 Worksheet Patient Problems: Problems Problem Status Diagnosed A-fib Acute Chronic Disease Mgmt/Transitional Care Acute Femoral neck fracture Acute Hypotension Acute
[2016-06-02] MEDS: SENNOSIDES 17.6 MG/10 ML UDL - IF LIQUID ORDERED PO SCH (21:21)
[2016-06-03 03:40] LABS: % IMMATURE GRANULYOCYTES 0.3 % (0.0-1.1); ABSOLUTE IMMATURE GRANULOCYTES 0.02 10^3/uL (0.00-0.10); ADD DIFF? NO; ADD MORPH? NO; ADD SCAN? NO; ATYPICAL LYMPHOCYTE FLAG 30 (0-99); FRAGMENT RBC FLAG 0 (0-99); HEMATOCRIT 28.5 % (40.0-51.0); HEMOGLOBIN 9.6 g/dL (13.7-17.5); LEFT SHIFT FLG 0 (0-99); LIPEMIA HEMOLYSIS FLAG 80 (0-99); MEAN CELL HEMOGLOBIN 27.5 pg (27.9-34.1); MEAN CELL HEMOGLOBIN CONCENTR. 33.7 g/dL (32.4-36.7); MEAN CELL VOLUME 81.7 fL (81.5-99.8); MEAN PLATELET VOLUME 9.4 fL (8.7-11.7); PLATELET CLUMPS FLAG 0 (0-99); PLATELET COUNT 164 10^3/uL (150-400); RED BLOOD CELL COUNT 3.49 10^6/uL (4.40-6.38); RED CELL DISTRIBUTION WIDTH 14.8 % (11.5-15.2)
[2016-06-03 04:01] LABS: ANION GAP 11 mEq/L (8-16); CALCIUM 8.2 mg/dL (8.5-10.4); CARBON DIOXIDE 24 mEq/l (22-31); CHLORIDE 118 mEq/L (97-110); GLOMERULAR FILTRATION RATE > 60; GLUCOSE 132 mg/dL (70-100); POTASSIUM 2.9 mEq/L (3.5-5.2); SODIUM 153 mEq/L (134-144)
[2016-06-03] MEDS: LEVOTHYROXINE 50 MCG TAB PO SCH (06:04)
--- NOTE | 2016-06-03 08:48 | SOAPPROG ---
SOAP Progress Note Assessment/Plan: Assessment/Plan: L femoral neck fracture, displaced s/p L hip bipolar hemiarthroplasty POD#4 - Continue hip precautions with abductor pillow - Continue PT/OT - Continue TEDs/SCDs for VTE prophylaxis - Continue pain management - Drain removal today - WBAT LLE - Okay for discharge from an orthopedic standpoint 05/31/16 11:44 05/31/16 11:48 05/31/16 11:54 06/01/16 10:09 06/01/16 10:13 06/02/16 13:16 06/02/16 13:20 06/03/16 08:47 Subjective: Pt denies any hip pain today, and continues to refuse PT/OT. Pt denies fever, chills, SOB, chest pain, N/V, calf pain, numbness and tingling. Objective: VSS, afebrile, pt is lying in bed sleeping, but responsive to questions and following commands. Abductor pillow in place, MACARIO/SCDs in place. Drain output 10mL Vital Signs Temp Pulse Resp BP Pulse Ox 37.8 C 113 H 18 136/85 H 100 06/03/16 00:00 06/03/16 04:00 06/03/16 04:00 06/03/16 04:00 06/03/16 04:00 Laboratory Results 06/03/16 03:30 06/03/16 03:30 06/02/16 06/03/16 06/04/16 05:59 05:59 05:59 Intake Total 425 770 Output Total 1785 740 Balance -1360 30 PT 18.7 SEC (12.0-15.0) H 06/01/16 05:00 INR 1.56 (0.83-1.16) H 06/01/16 05:00 Physical Exam - Physical Exam General Appearance: alert, no apparent distress Skin: normal color, warm/dry, other (Incision site c/d/i; drain intact) Extremities: normal inspection, normal capillary refill, No pedal edema, No calf tenderness, No swelling, No Lee's sign Neuro/Psych: alert, normal mood/affect, No no motor/sensory deficits ICD10 Worksheet Patient Problems: Problems Problem Status Diagnosed A-fib Acute Chronic Disease Mgmt/Transitional Care Acute Femoral neck fracture Acute Hypotension Acute
[2016-06-03] MEDS ORDERED: POTASSIUM CL 20 MEQ TAB PO ONE ×2 (09:34→16:00)
[2016-06-03] MEDS ORDERED: D5W 1,000 ML IV SCH (09:45)
[2016-06-03] MEDS: LISINOPRIL 10 MG TAB PO SCH (10:04)
[2016-06-03] MEDS: METOPROLOL TARTRATE 50 MG TAB PO SCH ×2 (10:04→20:51)
[2016-06-03] MEDS: ATORVASTATIN CALCIUM 10 MG TAB PO SCH (10:04)
[2016-06-03] MEDS: OMEGA-3 FATTY ACIDS 1,000 MG CAP PO SCH ×2 (10:04→20:50)
[2016-06-03] MEDS: ASPIRIN 81 MG CHEWABLE TAB PO SCH (10:04)
[2016-06-03] MEDS: ENOXAPARIN 40 MG/0.4 ML SYR SC SCH (10:05)
[2016-06-03] MEDS: MIRTAZAPINE 15 MG TAB PO SCH (10:05)
--- NOTE | 2016-06-03 12:20 | PDCARPN ---
Cardiology Progress Note Chief Complaint: None Assessment/Plan: Assessment: Patient is an 86 y/o male with moderate dementia, history of CAD s/p CABG ( unknown vessels), HTN, HLP, PVD s/p AAA stenting, renal insufficiency, and atrial fibrillation ([id number] of 4, previously on coumadin), who presented to [facility] after mechanical fall. Today, the patient is POD#4 for left bipolar hemiarthroplasty. Ongoing atrial fibrillation noted on telemetry (some control in rate noted). At present, off coumadin given surgery as well as severe risk for falls, and only on ASA therapy. Patient without voiced complaints of pain or discomfort. With the hold of the coumadin, while in house, the patient is on Lovenox. Plan: (1) Would maintain therapy on statins and fish oil for history of HLP, and maintain annual assessment of cholesterol and LFTs (2) Would continue, as stated above, lovenox. ASA therapy alone at discharge given fall risk (3) Beta blockers to continue for both rate control assistance and blood pressure control (4) ACEi therapy for blood pressure and renal protection, however, would use with care given the renal insufficiency history noted (5) Aggressive OT/PT therapy (6) Patient should have outpatient follow up with cardiology scheduled (7) Patient is a DNR Subjective: No voiced cardiovascular complaints Reviewed/Discussed With: hospitalist Time Spent With Patient: 20 minutes Objective: Vital Signs (8 Hrs) Temp Pulse Resp BP Pulse Ox 06/03/16 10:00 37.4 C 121 H 28 H 115/85 H 93 Intake/Output (24 Hrs) 06/02/16 06/03/16 06/04/16 05:59 05:59 05:59 Intake Total 425 770 Output Total 1785 740 Balance -1360 30 Intake: Oral (ml) 340 370 IV Infused (ml) 85 Diltiazem 125 mg In D5w 85 125 ml @ Per Protocol IV CONT JENNIFER Rx#:[id number] Packed Red Blood Cells ( 400 ml) Output: Urine (ml) 1650 725 Catheter 1650 725 Wound Drainage (ml) 135 5 Left Hip Hemovac 135 5 Wound Drainage (ml) 10 #1 Left Hemovac 10 Result Diagrams: 06/03/16 03:30 06/03/16 03:30 Telemetry: atrial fibrillation with rapid (>100 bpm) ventricular rates - Physical Exam Constitutional: no apparent distress, cachectic, No general pain, No apparent distress Eyes: PERRL Ears, Nose, Mouth, Throat: moist mucous membranes Cardiovascular: systolic murmur, irregularly irregular, No jugular vein distention Peripheral Pulses: 2+: dorsalis-pedis (R), dorsalis-pedis (L) Respiratory: clear to auscultate bilat, No no wheezes Gastrointestinal: normoactive bowel sounds Skin: no rashes, no edema Psychiatric: interactive ICD10 Worksheet Patient Problems: Problems Problem Status Diagnosed A-fib Acute Chronic Disease Mgmt/Transitional Care Acute Femoral neck fracture Acute Hypotension Acute
[2016-06-03] MEDS: HYDROmorphONE/DILAUDID 1 MG/ML SYR IVP PRN (12:41)
[2016-06-03] MEDS: SENNOSIDES 17.6 MG/10 ML UDL - IF LIQUID ORDERED PO SCH ×2 (15:02→20:54)
--- NOTE | 2016-06-03 19:21 | HOSPPROG ---
Hospitalist Progress Note Assessment/Plan: 86 yo M w CAD, AF, dementia here w fall, hip fracture elevated INR: warfarin dc'd permanently on [facility] proph aspiration: passed swallow eval AF: recurrent back on dilt gtt rates still a bit high cards watching blood loss anemia: likely 2/2 bleeding w hip fracture as opposed to ongoing bleeding hip soft good response to transfusion hypernatremia doesn't seem to be drinking give a liter of d5w encourage water thrombocytopenia: resolved CAD: known CAD w remote cabg trop weakly + on admit and has normalized. more c/w demand from AF as opposed to ACS agree w dr valiente that no further workup or intervention necessary prior to OR start asa postop pain: scheduled tylenol and prn dilaudid not complaining of pain dementia: uncertain baseline not eating - probably end stage hospice may be appropriate - will discuss with family proph: inr 1.9 hypokalemia replace code: DNR dispo: inpt Subjective: afib, rates little high overnight. not very conversant. doesn't seem to be eating Objective: Vital Signs Temp Pulse Resp BP Pulse Ox 37.0 C 120 H 22 H 134/80 H 93 06/03/16 16:36 06/03/16 16:36 06/03/16 16:36 06/03/16 16:36 06/03/16 16:36 Laboratory Results 06/03/16 03:30 06/03/16 03:30 06/02/16 06/03/16 06/04/16 05:59 05:59 05:59 Intake Total 425 770 500 Output Total 1785 740 400 Balance -1360 30 100 PT 18.7 SEC (12.0-15.0) H 06/01/16 05:00 INR 1.56 (0.83-1.16) H 06/01/16 05:00 discussed with cards tele pers reviewed and interpreted - afib rates 100-110 - Physical Exam Constitutional: chronically ill appearing Eyes: PERRL Ears, Nose, Mouth, Throat: dry mucous membranes Cardiovascular: irregularly irregular, tachycardia Respiratory: no respiratory distress, no rales or rhonchi, clear to auscultation Gastrointestinal: normoactive bowel sounds, soft, non-tender abdomen, no palpable masses Skin: warm Neurologic: No AAOx3 ICD10 Worksheet Patient Problems: Problems Problem Status Diagnosed A-fib Acute Chronic Disease Mgmt/Transitional Care Acute Femoral neck fracture Acute Hypotension Acute
[2016-06-03] MEDS: ACETAMINOPHEN 500 MG TAB PO PRN (20:50)
[2016-06-04 05:03] LABS: % IMMATURE GRANULYOCYTES 0.5 % (0.0-1.1); ABSOLUTE IMMATURE GRANULOCYTES 0.04 10^3/uL (0.00-0.10); ADD DIFF? NO; ADD MORPH? NO; ADD SCAN? NO; ATYPICAL LYMPHOCYTE FLAG 20 (0-99); FRAGMENT RBC FLAG 10 (0-99); HEMATOCRIT 31.1 % (40.0-51.0); HEMOGLOBIN 10.3 g/dL (13.7-17.5); LEFT SHIFT FLG 0 (0-99); LIPEMIA HEMOLYSIS FLAG 80 (0-99); MEAN CELL HEMOGLOBIN 27.5 pg (27.9-34.1); MEAN CELL HEMOGLOBIN CONCENTR. 33.1 g/dL (32.4-36.7); MEAN CELL VOLUME 83.2 fL (81.5-99.8); MEAN PLATELET VOLUME 9.4 fL (8.7-11.7); PLATELET CLUMPS FLAG 0 (0-99); PLATELET COUNT 198 10^3/uL (150-400); RED BLOOD CELL COUNT 3.74 10^6/uL (4.40-6.38); RED CELL DISTRIBUTION WIDTH 15.2 % (11.5-15.2)
[2016-06-04 05:29] LABS: ANION GAP 12 mEq/L (8-16); CALCIUM 8.5 mg/dL (8.5-10.4); CARBON DIOXIDE 23 mEq/l (22-31); CHLORIDE 116 mEq/L (97-110); GLOMERULAR FILTRATION RATE > 60; GLUCOSE 129 mg/dL (70-100); POTASSIUM 3.6 mEq/L (3.5-5.2); SODIUM 151 mEq/L (134-144)
[2016-06-04] MEDS: LEVOTHYROXINE 50 MCG TAB PO SCH (07:26)
[2016-06-04] MEDS: LISINOPRIL 10 MG TAB PO SCH (09:44)
[2016-06-04] MEDS: ATORVASTATIN CALCIUM 10 MG TAB PO SCH (09:44)
[2016-06-04] MEDS: OMEGA-3 FATTY ACIDS 1,000 MG CAP PO SCH ×2 (09:44→20:53)
[2016-06-04] MEDS: ASPIRIN 81 MG CHEWABLE TAB PO SCH (09:44)
[2016-06-04] MEDS: MIRTAZAPINE 15 MG TAB PO SCH (09:44)
[2016-06-04] MEDS: METOPROLOL TARTRATE 50 MG TAB PO SCH ×2 (09:44→20:53)
[2016-06-04] MEDS: ENOXAPARIN 40 MG/0.4 ML SYR SC SCH (09:45)
[2016-06-04] MEDS: SENNOSIDES 17.6 MG/10 ML UDL - IF LIQUID ORDERED PO SCH ×2 (10:33→20:52)
[2016-06-04] MEDS: DIGOXIN 500 MCG/2 ML AMP IVP SCH ×2 (10:55→18:32)
--- NOTE | 2016-06-04 11:00 | PDCARPN ---
Cardiology Progress Note Assessment/Plan: 86-year-old male with a history of CAD and prior CABG, PVD with AAA stent graft , atrial fibrillation, chronic diastolic CHF, and dementia. Currently after a mechanical fall sustaining a hip fracture; status post surgical repair May 30. Atrial Fibrillation- presumed chronic; continues to have suboptimal rate control with heart rates in the range of 130 to 150 bpm. He is on metoprolol 50 mg twice daily. Will add digoxin with an IV loading schedule followed by p.o. daily dosing. Coronary artery disease- history of CABG approximately 10 years ago. Details unknown. No complaints of angina. Continue secondary prevention regimen. Chronic Diastolic CHF- appears volume compensated. 06/04/16 11:01 Subjective: Denies chest pain and dyspnea. Reviewed/Discussed With: hospitalist Objective: Vital Signs (8 Hrs) Temp Pulse Resp BP Pulse Ox 06/04/16 07:30 36.7 C 140 H 16 112/91 H 9 L 06/04/16 03:19 36.4 C 97 15 133/79 H 94 Intake/Output (24 Hrs) 06/03/16 06/04/16 06/05/16 05:59 05:59 05:59 Intake Total 770 700 Output Total 740 400 200 Balance 30 300 -200 Intake: Oral (ml) 370 700 Packed Red Blood Cells ( 400 ml) Output: Urine (ml) 725 400 200 Catheter 725 400 200 Wound Drainage (ml) 5 Left Hip Hemovac 5 Wound Drainage (ml) 10 #1 Left Hemovac 10 Other: Intake Quantity Yes Sufficient Number of Voids Incontinence 3 Number of Stools Incontinence 1 Result Diagrams: 06/04/16 04:45 06/04/16 04:45 - Physical Exam Constitutional: no apparent distress Eyes: anicteric sclera Ears, Nose, Mouth, Throat: moist mucous membranes Cardiovascular: systolic murmur, irregularly irregular (tachycardic) Respiratory: clear to auscultate bilat Gastrointestinal: normoactive bowel sounds, no masses Skin: no edema Psychiatric: interactive, not anxious ICD10 Worksheet Patient Problems: Problems Problem Status Diagnosed A-fib Acute Chronic Disease Mgmt/Transitional Care Acute Femoral neck fracture Acute Hypotension Acute
--- NOTE | 2016-06-04 12:07 | SOAPPROG ---
SOAP Progress Note Assessment/Plan: Assessment/Plan: Left formoral neck fracture, displaced S/p left hip bipolar hemiarthroplasty PO Day #5 -Cont post hip precautions w/ abductor pillow while in bed -Cont PT/OT, encourage supervised OOB activity -Cont SCDs/TEDs for VTE mechanical prophylaxis -Cont chemoprophylaxis per cardiology -Cont pain management, cont progression to PO meds as tolerated -Cont WBAT status of LLE -Pt remains stable to d/c from ortho standpoint, will f/u w/ Dr. Andrews 10-14 days post op in clinic 06/04/16 12:03 Subjective: Pt seen up in chair today. He notes he is tire, but denies any significant or new onset hip pain at this time. Pt states he has been working well with PT/OT , however, this is contradicted by his nurse (Kajal), who states he is reluctant to put weight on his LLE. The pt also denies any dumont, f/c, n/v/abd pain, post calf pain, or n/t. He states he is tolerating his diet and meds well , and has no additional concerns or complaints. Objective: Pt seen up in chair for exam. He is pleasant and cooperative with exam, slow to answer questions and unsure about timeline of events. VSS, afebrile. Dressing dry, no significant drainage, erythema, calor or induration noted. TEDs and SCDs in place. Post calves are NTTP, no palpable vascular cords, negative Lee's bilat. DNVI BLE. Vital Signs Temp Pulse Resp BP Pulse Ox 36.4 C 167 H 15 121/67 H 97 06/04/16 11:13 06/04/16 11:13 06/04/16 11:13 06/04/16 11:13 06/04/16 11:13 Laboratory Results 06/04/16 04:45 06/04/16 04:45 06/03/16 06/04/16 06/05/16 05:59 05:59 05:59 Intake Total 770 700 Output Total 740 400 200 Balance 30 300 -200 PT 18.7 SEC (12.0-15.0) H 06/01/16 05:00 INR 1.56 (0.83-1.16) H 06/01/16 05:00 ICD10 Worksheet Patient Problems: Problems Problem Status Diagnosed A-fib Acute Chronic Disease Mgmt/Transitional Care Acute Femoral neck fracture Acute Hypotension Acute
--- NOTE | 2016-06-04 15:05 | HOSPPROG ---
Hospitalist Progress Note Assessment/Plan: 86 yo M w CAD, AF, dementia here w fall, hip fracture elevated INR: warfarin dc'd permanently on [facility] proph aspiration: passed swallow eval AF: recurrent back on dilt gtt rates still a bit high cards adding digoxin blood loss anemia: likely 2/2 bleeding w hip fracture as opposed to ongoing bleeding hip soft good response to transfusion hypernatremia doesn't seem to be drinking give a liter of d5w - little better encourage water thrombocytopenia: resolved CAD: known CAD w remote cabg trop weakly + on admit and has normalized. more c/w demand from AF as opposed to ACS agree w dr valiente that no further workup or intervention necessary prior to OR start asa postop pain: scheduled tylenol and prn dilaudid not complaining of pain dementia: uncertain baseline not eating - probably end stage family agrees to hospice when dc'd hypokalemia replace code: DNR dispo: inpt Subjective: no new complaints Objective: Vital Signs Temp Pulse Resp BP Pulse Ox 36.4 C 167 H 15 121/67 H 97 06/04/16 11:13 06/04/16 11:13 06/04/16 11:13 06/04/16 11:13 06/04/16 11:13 Laboratory Results 06/04/16 04:45 06/04/16 04:45 06/03/16 06/04/16 06/05/16 05:59 05:59 05:59 Intake Total 770 700 Output Total 740 400 200 Balance 30 300 -200 PT 18.7 SEC (12.0-15.0) H 06/01/16 05:00 INR 1.56 (0.83-1.16) H 06/01/16 05:00 - Physical Exam Constitutional: no apparent distress, appears nourished, not in pain Eyes: anicteric sclera, EOMI Ears, Nose, Mouth, Throat: moist mucous membranes, hearing normal Cardiovascular: irregularly irregular, tachycardia Respiratory: no respiratory distress, no rales or rhonchi, clear to auscultation Skin: warm Neurologic: No AAOx3 ICD10 Worksheet Patient Problems: Problems Problem Status Diagnosed A-fib Acute Chronic Disease Mgmt/Transitional Care Acute Femoral neck fracture Acute Hypotension Acute
[2016-06-04] MEDS: ACETAMINOPHEN 500 MG TAB PO PRN (20:53)
[2016-06-05] MEDS: DIGOXIN 500 MCG/2 ML AMP IVP SCH (02:44)
[2016-06-05] MEDS: LEVOTHYROXINE 50 MCG TAB PO SCH (06:43)
[2016-06-05 07:22] VITALS: BP 139/90; RESP 12; TEMP 98.1; O2SAT 93
[2016-06-05] MEDS: SENNOSIDES 17.6 MG/10 ML UDL - IF LIQUID ORDERED PO SCH (07:57)
[2016-06-05] MEDS: MIRTAZAPINE 15 MG TAB PO SCH (07:57)
[2016-06-05] MEDS: METOPROLOL TARTRATE 50 MG TAB PO SCH (07:57)
[2016-06-05] MEDS: ASPIRIN 81 MG CHEWABLE TAB PO SCH (07:57)
[2016-06-05] MEDS: ENOXAPARIN 40 MG/0.4 ML SYR SC SCH (07:57)
[2016-06-05] MEDS: ATORVASTATIN CALCIUM 10 MG TAB PO SCH (07:57)
[2016-06-05] MEDS: OMEGA-3 FATTY ACIDS 1,000 MG CAP PO SCH (08:23)
--- NOTE | 2016-06-05 09:13 | PDIAF ---
- Diagnosis Diagnosis: hip fracture Code Status: Do Not Resuscitate - Medication Management Discharge Medications: Medications to Continue on Transfer Acetaminophen [Tylenol 325mg (*)] 650 mg PO Q6HRS PRN 05/29/16 [Last Taken Unknown] Bisacodyl [Dulcolax] 10 mg RC DAILY PRN 05/29/16 [Last Taken Unknown] Levothyroxine [Synthroid 50 mcg (*)] 50 mcg PO DAILY06 05/29/16 [Last Taken ] Magnesium Hydroxide [Milk of Magnesia] 30 ml PO DAILY PRN 05/29/16 [Last Taken 05/09/16] Metoprolol Tartrate [Lopressor 50 mg (*)] 50 mg PO BID 05/29/16 [Last Taken ] Mirtazapine [Remeron] 15 mg PO DAILY 05/29/16 [Last Taken 05/28/16] [place]-3 Fatty Acids [Fish Oil 1000 mg (*)] 1,000 mg PO BID 05/29/16 [Last Taken 05/28/16] Aspirin [Aspirin 81mg (*)] 81 mg PO DAILY #0 tab.chew 06/05/16 [Last Taken Unknown] Digoxin [Lanoxin 125 mcg (RX)] 125 mcg PO DAILY AT 10AM #0 tab 06/05/16 [Last Taken Unknown] Metoprolol Tartrate [Lopressor 50 mg (*)] 50 mg PO BID #0 tab 06/05/16 [Last Taken Unknown] Discharge Medications: Refer to the Discharge Home Medication list for PRN reason. - Orders Diet Recommendation: no restrictions on diet Additional: Hospice - Follow Up Care Current Providers and Referrals: Helder Andrews MD [Medical Doctor] - (Follow-up in clinic 10-14 days after surgery. Call office to schedule appointment.) RAMANA ZAPATA [Primary Care Provider] -
[2016-06-05] MEDS ORDERED: DIGOXIN 125 MCG TAB PO SCH (10:00)
[2016-06-05 10:02] VITALS: PULSE 125
--- NOTE | 2016-06-08 14:49 | PQFORM ---
PHYSICIAN QUERY FORM Needs Your Response This query form is being sent to you to assure this patient record is coded properly. Please respond to the question below: SUPERVISOR TRAVEL TRAILER QUESTION: Please clarify patients blood loss anemia as ___ Acute ___ Chronic ___ Other (Please specify ) ___ Unable to be determined Thank You Cherie STRONG Soaking Pit Operator INSTRUCTIONS FOR RESPONSE: Answer question by clicking on the "Edit Document" button. Move cursor to area below the stars. When complete, hit "Save." Click on the "Sign" button, then click "Sign" again. Type in your PIN and hit "Enter." MTDD
== END 2016-06-05 10:34 | DRG 470 ==
LOC: F2N 13:10 → F2W 05-31 15:41
PROVIDERS: ADMIT Internal Medicine; ATTEND Internal Medicine
PROC: 02HV33Z Insertion of Infusion Device into Superior Vena Cava, Percutaneous Approach (ICD-10-PCS; 2016-05-30)
PROC: 0SRB0J9 Replacement of Left Hip Joint with Synthetic Substitute, Cemented, Open Approach (ICD-10-PCS; principal; 2016-05-30 12:29)
PROC: 30233N1 Transfusion of Nonautologous Red Blood Cells into Peripheral Vein, Percutaneous Approach (ICD-10-PCS; 2016-06-02)
DX: S72.002A Fracture of unspecified part of neck of left femur, initial encounter for closed fracture (principal); W06.XXXA Fall from bed, initial encounter; Y92.193 Bedroom in other specified residential institution as the place of occurrence of the external cause; I48.91 Unspecified atrial fibrillation; E87.6 Hypokalemia; D69.6 Thrombocytopenia, unspecified; F03.90 Unspecified dementia, unspecified severity, without behavioral disturbance, psychotic disturbance, mood disturbance, and anxiety; I50.32 Chronic diastolic (congestive) heart failure; E03.9 Hypothyroidism, unspecified; I25.10 Atherosclerotic heart disease of native coronary artery without angina pectoris; I73.9 Peripheral vascular disease, unspecified; I10 Essential (primary) hypertension; Z95.1 Presence of aortocoronary bypass graft; Z79.01 Long term (current) use of anticoagulants; Z66 Do not resuscitate
CPT/HCPCS: 82947-QW; 92526-GN; 92610-GN; 97110-GP; 97163-GP; 97166-GO; 97530-GO; 97530-GP; 97535-GO; C1713; C1751; G8978-GP-CM; G8979-GP-CK; G8987-GO-CM; G8988-GO-CK; G8996-GN-CK; G8997-GN-CI; G8998-GN-CJ; J0171; J1160; J1170; J1650; J2250; J2405; J3010; J3430; P9016; P9017; P9041